=== PATIENT | male | born 2000 | race Caucasian/White ===

== ENCOUNTER 2023-09-10 18:27 | Inpatient (IN) | payer MEDICAID, SELFPAY ==
[2023-09-10 19:23] VITALS: BP 133/74; PULSE 62; RESP 20; TEMP 36.9; O2SAT 98
[2023-09-10 19:25] VITALS: BMI 27.7
--- NOTE | 2023-09-10 20:06 | PC.ADMIT ---
Pt is a 23 year old transgender male (he/him/they/them pronouns) who transferred from [facility] ED on a CV for SI without a plan.? Per medical records, he was referred to [facility] Crisis team 09/08 following medical clearance. Pt has been experiencing?increased?stressors at home recently learning he will need to find new housing by the end of September. Geraldo has hx of MDD, anxiety disorder, gender dysphoria, hx of SIB by cutting (11 mos ago), PTSD,? panic attacks, and chronic lower back pain. He admits to smoking cigarettes and marijuana. He has had 2 previous psychiatric admissions in? 2017 and 2019 for suicide attempt by overdose on a cocktail of medication . Pt reluctantly agreed to skin/safety check, was agitated and tearful self conscious of his chest. Pt skin and safety check performed with 2 female staff, reviewed admission paperwork, and belongings inventoried. Skin intact and no unsafe belongings found on his person. Pt currently denies SI/HI/AVH. Reports his SI is vague and chronic but has no plan or intent.?Pt very upset and overwhelmed with questions, need to undress, and change into new clothing, tearful and yelling at times during admission. process. When asked about hx of restraints he denied any but states that if in the event of needing to be restrained he would prefer a male stating, I would not want to hit a girl if I were upset, I'd rather hit a west! Pt was extremely angry and tearful when asked if rooming with another male was okay and reported, that nurse lied to me! She told me this would not be a problem! This was not passed along in nurse to nurse from outside hospital. Discussed above issue with pharmacist in charge and pt informed of plan to change room assignment. Offered him prn atarax and he declined reporting that does nothing for me.
[2023-09-10] MEDS: traZODone HCL 50 MG TABLET PO (22:21)
[2023-09-10] MEDS: Prazosin HCL 1 MG CAPSULE PO (22:21)
[2023-09-10] MEDS: hydrOXYzine HCL 25 MG TABLET PO (22:21)
[2023-09-11 08:00] VITALS: BP 122/59; PULSE 58; RESP 18; TEMP 36.6; O2SAT 100
[2023-09-11] MEDS: Propranolol HCL LA 60 MG CAP.SA.24H PO (08:09)
[2023-09-11] MEDS: Venlafaxine HCl ER 37.5 MG CAP.ER.24H PO ×2 (08:09→16:01)
[2023-09-11] MEDS: lamoTRIgine 25 MG TABLET PO ×2 (08:09→16:01)
[2023-09-11] MEDS: LORazepam 1 MG TABLET 2 MG PO (08:36)
[2023-09-11] MEDS: HaloperidoL 5 MG TABLET PO (08:37)
[2023-09-11] MEDS: diphenhydrAMINE HCL 25 MG CAPSULE 50 MG PO (08:37)
[2023-09-11 10:01] LABS: Cholesterol 319 mg/dL (<200); HDL Cholesterol 27 mg/dL (>40); LDL Cholesterol Calculated 270 mg/dL (<100); Triglycerides 113 mg/dL (<150)
[2023-09-11 10:07] LABS: Estimated Average Glucose 94 mg/dL; Hemoglobin A1c % 4.9 % (<6.0)
[2023-09-11 10:12] LABS: Free T4 (Free Thyroxine) 1.28 ng/dL (0.71-1.85); Thyroid Stimulating Hormone 1.48 uIU/mL (0.32-4.0)
[2023-09-11] MEDS: Nicotine Polacrilex 2 MG GUM 4 MG BUCCAL ×2 (10:30→20:03)
[2023-09-11] MEDS: Nicotine 14 MG PATCH.TD24 TRANSDERMA (10:30)
[2023-09-11 11:41] LABS: Folate 9.3 ng/mL (> or = 4.0); Vitamin B12 307 pg/mL (200-900)
--- NOTE | 2023-09-11 11:58 | HO.PM.IMCN ---
History of Present Illness Data of Consult Service Date: 09/11/23 Requesting physician: Jeffrey Britton Primary Care Provider: Teo Turpin MD HPI Reason for consult: medical H&P 23-year-old transgender male with history of mood disorder, PCOS, vitamin-D deficiency, and chronic low back pain admitted to Psychiatry with consult placed hospitalist service for medical H& P. The patient was admitted from [facility] ED. While in the ED, hematology studies unremarkable. Renal function and electrolyte levels normal. Glucose normal. Urine tox screen negative. Urine test negative. His only concern right now is postural palpitations but denies any presyncope/syncope or chest pain. He tells me that he has been without his norethindrone for several days and he has been unable to reach anyone at home to bring this in. Unfortunately, the patient has begun menstruating today and reports heavy flow. He also has not used his testosterone injections since 08/18. Otherwise he has no complaints or concerns. Review of Systems Review of Systems: General: No fevers, malaise, unintentional weight loss HEENT: No blurred vision, diplopia. No sore throat, nasal congestion, rhinorrhea, sinus pain, ear pain Cardiovascular: No chest pain, palpitations, or leg edema Respiratory: No shortness of breath, wheezing, cough GI: No abdominal pain, nausea, vomiting, diarrhea, constipation, melena, hematochezia : No dysuria, hematuria, increased urinary frequency, decreased urinary output MSK: No myalgia, back pain Neuro: No headaches, weakness, paresthesias. +positional lightheadedness Skin: No rashes or lesions [facility] Medical History On hormone replacement therapy Vitamin D deficiency MDD (major depressive disorder) PCOS (polycystic ovarian syndrome) Social History Household Members: Friend(s) Household Members Other:: 3 roomates Housing: Apartment Do you presently have visiting nurse or other home services: No Patient Tobacco Use Status: Current everyday Tobacco user Tobacco use type: Cigarette Cigarettes Per Day: 4 Smoked in Last 30 Days: Yes e-Cigarette/Vaping Use: Never Used Patient Interested in Nicotine Replacement: Yes Patient Given Instructions on How to Stop Smoking: No Second Hand Smoke Exposure: No Use of substances other than those prescribed or required for medical reasons: Yes Substance Use Type: Marijuana Substance Use Frequency: Daily Last Used Substance: Just Prior to Admission Last Used Substance Other:: Marijuana Currently Displaying Signs/Symptoms of Drug Intoxication Withdrawal: No Any prior treatment program specific to substance use: No Do you feel safe in your current relationship?: Yes Is there a partner from a previous relationship who is making you feel unsafe now?: No Are you made to feel afraid or neglected: No Spiritual Healthcare Practices: none Jewish Healthcare Practices: none Cultural Healthcare Practices: none Advance Directives: No Advance Directives Information Provided: No Do you have thoughts of harming others: None Do you have a plan to hurt others: No Plan Recently lost weight without trying: Unsure Eating poorly because of decreased appetite: Yes Meds Allergies Allergy/AdvReac Type Severity Reaction Status Date / Time No Known Allergies Allergy Verified 09/10/23 12:13 Active Medications: Current Medications Acetaminophen (Acetaminophen 325 Mg Tablet) 650 mg PO Q6H PRN PRN Reason: Headache/Pain Mild Scale (1-3) Al Hydroxide/Mg Hydroxide (Magnesium Hydrox/Alum Hydrox 30 Ml Oral.Susp) 30 ml PO Q6H PRN PRN Reason: Heartburn/Nausea Hydroxyzine HCl (Hydroxyzine Hcl 25 Mg Tablet) 25 mg PO Q6H PRN PRN Reason: Anxiety Last Admin: 09/10/23 22:21 Dose: 25 mg Lamotrigine (Lamotrigine 25 Mg Tablet) 25 mg PO DAILY [facility] Last Admin: 09/11/23 08:09 Dose: 25 mg Magnesium Hydroxide (Milk Of Magnesia 30 Ml Oral.Susp) 30 ml PO DAILY PRN PRN Reason: Constipation Nicotine (Nicotine 14 Mg Patch.Td24) 14 mg TRANSDERMA DAILY PRN PRN Reason: smoking cessation Last Admin: 09/11/23 10:30 Dose: 14 mg Nicotine Polacrilex (Nicotine Polacrilex 2 Mg Gum) 4 mg BUCCAL Q2H PRN PRN Reason: nicotine cravings Last Admin: 09/11/23 10:30 Dose: 4 mg Prazosin HCl (Prazosin Hcl 1 Mg Capsule) 1 mg PO BEDTIME [facility] Last Admin: 09/10/23 22:21 Dose: 1 mg Propranolol HCl (Propranolol Hcl La 60 Mg Cap.Sa.24h) 60 mg PO DAILY [facility] Last Admin: 09/11/23 08:09 Dose: 60 mg Trazodone HCl (Trazodone Hcl 50 Mg Tablet) 50 mg PO BEDTIME MRX1 PRN PRN Reason: Insomnia Last Admin: 09/10/23 22:21 Dose: 50 mg Venlafaxine HCl (Venlafaxine Hcl Er 37.5 Mg Cap.Er.24h) 37.5 mg PO DAILY [facility] Last Admin: 09/11/23 08:09 Dose: 37.5 mg Home Medications ?Medication ?Instructions ?Recorded ?Confirmed ?Last Taken ?Type gabapentin 300 mg PO DAILY PRN Anxiety 09/10/23 09/10/23 09/09/23 History hydroxyzine pamoate 25 mg PO DAILY PRN Anxiety 09/10/23 09/10/23 09/09/23 History lamotrigine 25 mg PO DAILY 09/10/23 09/10/23 09/09/23 History norethindrone acetate 5 mg PO DAILY 09/10/23 09/10/23 2 Days Ago History ~09/08/23 prazosin 1 mg PO BEDTIME 09/10/23 09/10/23 09/09/23 History propranolol 60 mg PO DAILY 09/10/23 09/10/23 09/09/23 History testosterone 60 mg IM DIRECTED 09/10/23 09/10/23 08/19/23 History venlafaxine 37.5 mg PO DAILY 09/10/23 09/10/23 09/09/23 History Physical Exam Vital Signs and Narrative: Vital Signs: Last Vital Signs Temp 97.9 F 09/11/23 08:00 Pulse 58 09/11/23 08:00 Resp 18 09/11/23 08:00 BP 122/59 L 09/11/23 08:00 Pulse Ox 100 09/11/23 08:00 O2 Del Method Room Air 09/11/23 08:00 BMI result Body Mass Index 27.7 Constitutional - Awake and Alert, No apparent distress Eyes - PERRLA, EOMI Cardiovascular - S1S2, RRR, No edema Respiratory - Normal lung expansion, Normal respiratory effort, No respiratory distress, CTA bilaterally Gastrointestinal - NT / ND; +BS; No rebound or guarding Extremities - no calf tenderness bilaterally, no swelling Musculoskeletal - Normal inspection, normal ROM Skin - Warm/Dry Neurological - Alert & oriented x3, CN II-XII in tact, 5/5 strength BUE and BLE Psychological - Appropriate affect Results Labs Labs: Laboratory Results - last 24 hr 09/11/23 09:18 Estimat Average Glucose 94 Hemoglobin A1c % 4.9 Magnesium 2.0 Triglycerides 113 Cholesterol 319 H LDL Cholesterol, Calc 270 H HDL Cholesterol 27 L Vitamin B12 307 Folate 9.3 TSH 1.48 Free T4 1.28 Assessment and Plan (1) Routine medical exam: Status: Acute Plan 23-year-old transgender male with history of mood disorder, PCOS, vitamin-D deficiency, and chronic low back pain admitted to Psychiatry with consult placed hospitalist service for medical H& P. #Mood disorder -plan per psychiatry #Transgender male on hormone replacement -If possible, have pt's family/friend being in norethidrone as this (nor anything similar) is available on formulary. There is no harm in not being on medication, but patient will continue to menstruate and is reporting heavy flow. Encourage increased fluid intake -Pt has not taken IM testosterone since 08/18. Not available on formulary. Can be brought from home if possible, otherwise ok to resume on discharge #Chronic low back pain -continue gabapentin #Positional palpitations -VSS on review of chart -check orthostatic VS -encourage PO intake #HLD -Total cholesterol 319, LDL 270 -statin therapy typically not indicated in adults <40. However, in pt with LDL >190, statin therapy recommended -start atorvastatin 40mg daily -outpt follow up Thank you for allowing me to participate in this consult. Signing off at this time. Please do not hesitate to call for further questions or for any acute medical issues.
--- NOTE | 2023-09-11 12:35 | HO.PSYADMNOT ---
HPI Date of Service: 09/11/23 Chief Complaint: F33.2, F64.1, F1.9 Sources of Information: patient interviewed, chart reviewed and crisis/core team assessment reviewed HPI Subjective Notes: [place] Warning and Conditional Voluntary Narrative: Pt is a 23 yo trans male with hx of depression, PTSD who presents for worsening depression and SI. Pt reports he's been taking current low dose of medications consistently for a year (Effexor 37.5mg and Lamictal 50mg) but has remained depressed. Depression has been worsening for past 3 months, feeling he has no confidence... and even worse for past 2 weeks, dealing with financial stressors, making her chronic SI which is normally fleeting, become present all the time. He says this week he ended up in a dark spot and his daily, chronic, passive SI became active; he realized it would not take much longer for his to start to develop plans and intent and so boyfriend called for help. Pt has On going ptsd symptoms, including dissociative episodes. Pt denies any AVH; denies hx of manic symptoms; denies drug/alcohol abuse. Endorses OCD symptoms and explains food rituals, intrusive thoughts that food will be contaminated with; has insight to know not true, but remain present; intrusive thought of need to turn certain way before sitting. -this AM she had dissociative episode, got dysregulated and agitated but was redirectable, took prn medicaiton and episode resolved. this AM she had dissociative episode, got dysregulated and agitated but was redirectable, took prn medicaiton and episode resolved. Past Psychiatric History: last psych admission 2018 Medical Evaluation Reviewed: Hospitalist Marylou Pending [facility] Medical History (Updated 09/13/23 @ 11:08 by Jeffrey Britton MD) OCD (obsessive compulsive disorder) PTSD (post-traumatic stress disorder) On hormone replacement therapy Vitamin D deficiency MDD (major depressive disorder) PCOS (polycystic ovarian syndrome) Family History: deferred Social History: graduated HS; some college works 35 hours at [employer] has housing, lives with roommates; supportive boyfriend 2 years Substance History: none Trauma History: positive Diagnostics Vital Signs (24Hr): Vital Signs - 24 hr 09/10/23 19:23 09/11/23 08:00 Temperature 98.4 F 97.9 F Pulse Rate 62 58 Respiratory Rate 20 18 Blood Pressure 133/74 122/59 L Pulse Oximetry 98 100 Oxygen Delivery Method Room Air Room Air BMI result Body Mass Index 27.7 Labs Labs: Laboratory Results - last 48 hr 09/11/23 09:18 Estimat Average Glucose 94 Hemoglobin A1c % 4.9 Magnesium 2.0 Triglycerides 113 Cholesterol 319 H LDL Cholesterol, Calc 270 H HDL Cholesterol 27 L Vitamin B12 307 Folate 9.3 TSH 1.48 Free T4 1.28 Meds/Allergies Meds Home Medications ?Medication ?Instructions ?Recorded ?Confirmed ?Type gabapentin 300 mg PO DAILY PRN Anxiety 09/10/23 09/10/23 History hydroxyzine pamoate 25 mg PO DAILY PRN Anxiety 09/10/23 09/10/23 History lamotrigine 25 mg PO DAILY 09/10/23 09/10/23 History norethindrone acetate 5 mg PO DAILY 09/10/23 09/10/23 History prazosin 1 mg PO BEDTIME 09/10/23 09/10/23 History propranolol 60 mg PO DAILY 09/10/23 09/10/23 History testosterone 60 mg IM DIRECTED 09/10/23 09/10/23 History venlafaxine 37.5 mg PO DAILY 09/10/23 09/10/23 History Allergies Allergies Allergy/AdvReac Type Severity Reaction Status Date / Time No Known Allergies Allergy Verified 09/10/23 12:13 Mental Status Exam Mental Status Exam Narrative: Pt is alert and oriented; behavior was recently dysregulated which resolved; now cooperative and calm; patient is not in distress; dressed in casual attire, glasses, facial hair, adequate hygiene; mood is described as depressed and affect congruent, downcast; eye contact appropriate; Speech is normal rate, volume and prosody and not pressured; both psychomotor agitation/retardation present; thought process is organized and goal directed; Thought content is on life stressors; tx; otherwise pertinent to relevant topics and without any delusional content, paranoid ideations or grandiosity; currently passive SI; no HI. There is no evidence of perceptual disturbance. Patients insight and judgment impaired. Assessment & Plan Assessment & Plan (1) MDD (major depressive disorder): Status: Acute Code(s): F32.9 - Major depressive disorder, single episode, unspecified (2) PTSD (post-traumatic stress disorder): Status: Acute Code(s): F43.10 - Post-traumatic stress disorder, unspecified (3) OCD (obsessive compulsive disorder): Status: Acute Code(s): F42.9 - Obsessive-compulsive disorder, unspecified Plan Pt is a 23 yo trans male with hx of depression, PTSD who presents for worsening depression and SI. Pt reports he's been taking current low dose of medications consistently for a year (Effexor 37.5mg and Lamictal 50mg) but has remained depressed. Depression has been worsening for past 3 months, feeling he has no confidence... and even worse for past 2 weeks, dealing with financial stressors, making her chronic SI which is normally fleeting, become present all the time. He says this week he ended up in a dark spot and his daily, chronic, passive SI became active; he realized it would not take much longer for his to start to develop plans and intent and so boyfriend called for help. Pt has On going ptsd symptoms, including dissociative episodes. Pt denies any AVH; denies hx of manic symptoms; denies drug/alcohol abuse. Endorses OCD symptoms and explains food rituals, intrusive thoughts that food will be contaminated with; has insight to know not true, but remain present; intrusive thought of need to turn certain way before sitting. -this AM she had dissociative episode, got dysregulated and agitated but was redirectable, took prn medicaiton and episode resolved. Plan: CV q15 INCrease Effexor XR to 75mg (has been on 37.5mg for a year) Increase Lamictal to 100mg (has been on 50mg for a year) Pt on progesterone hormones at home; not on formulary; he will have someone bring it in; currently menstruating which is upsetting Patient educated on: diagnosis, medication risk/benefits, therapeutic strategies and medical condition Informed Consent: understands Reason for continued inpatient stay Substantial Risk for: harm to self Statement Statement: I have reviewed the history and physical and performed a pertinent examination on my patient. No changes have occurred unless specified. If the History and Physical was not performed prior to admission, the Hospitalist's service will be consulted for completing the admission physical. Time Spent With Patient Time: Total time managing care of this patient today ____ minutes.
[2023-09-11 15:37] VITALS: BP 118/63; PULSE 75
[2023-09-11 15:38] VITALS: BP 116/67; PULSE 76
[2023-09-11 15:39] VITALS: BP 127/75; PULSE 87
[2023-09-11] MEDS: Prazosin HCL 1 MG CAPSULE PO (22:45)
[2023-09-11] MEDS: cloNIDine HCL 0.1 MG TABLET PO (22:45)
[2023-09-11] MEDS: hydrOXYzine HCL 25 MG TABLET PO (22:45)
[2023-09-11] MEDS: traZODone HCL 50 MG TABLET PO (22:45)
[2023-09-12] MEDS: Nicotine 14 MG PATCH.TD24 TRANSDERMA (10:49)
[2023-09-12] MEDS: Atorvastatin Calcium 40 MG TABLET PO (10:49)
[2023-09-12] MEDS: lamoTRIgine 100 MG TABLET PO (10:49)
[2023-09-12] MEDS: Venlafaxine HCl ER 75 MG CAP.ER.24H PO (10:54)
[2023-09-12 10:55] VITALS: BP 135/68; PULSE 53; RESP 17; TEMP 36.9; O2SAT 98
[2023-09-12] MEDS: Nicotine Polacrilex 2 MG GUM 4 MG BUCCAL ×4 (11:04→20:27)
[2023-09-12 11:19] VITALS: PULSE 53
--- NOTE | 2023-09-12 17:28 | HE.PHANOTE ---
re: pt own med RN was busy and needed medication, RN sent Tony, RN publisher assistant to lemon picker medication from pharmacy. Medication should now be on the floor. (norethindrone 5mg)
--- NOTE | 2023-09-12 18:40 | PC.NURSE ---
Pt reports he had a good visit with his boyfriend this afternoon. He took his home medication Progesterone per MD order. He is visible on unit and eating meals in kitchen socializing with select peers.
[2023-09-12] MEDS: cloNIDine HCL 0.1 MG TABLET PO (21:56)
[2023-09-12] MEDS: traZODone HCL 50 MG TABLET PO ×2 (21:56→22:40)
[2023-09-12] MEDS: hydrOXYzine HCL 25 MG TABLET PO (21:56)
[2023-09-12] MEDS: Prazosin HCL 1 MG CAPSULE PO (21:56)
[2023-09-13 08:00] VITALS: BP 120/74; PULSE 92; RESP 18; TEMP 37.1; O2SAT 99
[2023-09-13] MEDS: Venlafaxine HCl ER 75 MG CAP.ER.24H PO (08:22)
[2023-09-13] MEDS: lamoTRIgine 100 MG TABLET PO (08:22)
[2023-09-13] MEDS: Atorvastatin Calcium 40 MG TABLET PO (08:22)
[2023-09-13] MEDS: Nicotine Polacrilex 2 MG GUM 4 MG BUCCAL ×3 (08:53→20:22)
--- NOTE | 2023-09-13 10:29 | HO.PSYCHPN ---
Subjective Subjective Date of Service: 09/12/23 Reason For Visit: F33.2, F64.1, F1.9 Interim History: late entry note for pt seen on 09/12/23 pt feeling better today; he says being on unit, talking to people. Denies any medication side-effects from increased doses. He did not get propranolol today due to lowered HR; pt denies missing dose today and agrees to have it held for now, unsure if it's helpful. No SI today, more hopeful. Mental Status Exam Mental Status Exam Narrative: Pt is alert and oriented; behavior cooperative, friendly and calm; patient is not in distress; dressed in casual attire, glasses, facial hair, adequate hygiene; mood is described as little better and affect congruent, brighter, more calm; eye contact appropriate; Speech is normal rate, volume and prosody and not pressured; no psychomotor agitation/retardation present; thought process is organized and goal directed; Thought content is on trying to be more hopeful; tx; otherwise pertinent to relevant topics and without any delusional content, paranoid ideations or grandiosity; currently no SI; no HI. There is no evidence of perceptual disturbance. Patients insight and judgment impaired but improving. Diagnostics Vital Signs (24Hr): Vital Signs - 24 hr 09/12/23 10:55 09/12/23 11:19 09/13/23 08:00 Temperature 98.5 F 98.7 F Pulse Rate 53 53 92 Respiratory Rate 17 18 Blood Pressure 135/68 120/74 Pulse Oximetry 98 99 Oxygen Delivery Method Room Air Room Air BMI result Body Mass Index 27.7 Labs Labs: Laboratory Results - last 48 hr 09/11/23 09:18 Vitamin B12 307 Folate 9.3 Medications Medications Current Medications Acetaminophen (Acetaminophen 325 Mg Tablet) 650 mg PO Q6H PRN PRN Reason: Headache/Pain Mild Scale (1-3) Al Hydroxide/Mg Hydroxide (Magnesium Hydrox/Alum Hydrox 30 Ml Oral.Susp) 30 ml PO Q6H PRN PRN Reason: Heartburn/Nausea Atorvastatin Calcium (Atorvastatin Calcium 40 Mg Tablet) 40 mg PO DAILY [facility] Last Admin: 09/13/23 08:22 Dose: 40 mg Clonidine HCl (Clonidine Hcl 0.1 Mg Tablet) 0.1 mg PO Q4H PRN; Protocol PRN Reason: mild anxiety Last Admin: 09/12/23 21:56 Dose: 0.1 mg Hydroxyzine HCl (Hydroxyzine Hcl 25 Mg Tablet) 25 mg PO Q6H PRN PRN Reason: Anxiety Last Admin: 09/12/23 21:56 Dose: 25 mg Lamotrigine (Lamotrigine 100 Mg Tablet) 100 mg PO DAILY [facility] Last Admin: 09/13/23 08:22 Dose: 100 mg Magnesium Hydroxide (Milk Of Magnesia 30 Ml Oral.Susp) 30 ml PO DAILY PRN PRN Reason: Constipation Nicotine (Nicotine 14 Mg Patch.Td24) 14 mg TRANSDERMA DAILY PRN PRN Reason: smoking cessation Last Admin: 09/12/23 10:49 Dose: 14 mg Nicotine Polacrilex (Nicotine Polacrilex 2 Mg Gum) 4 mg BUCCAL Q2H PRN PRN Reason: nicotine cravings Last Admin: 09/13/23 08:53 Dose: 4 mg Pt Own ( Norethindrone 5 Mg Tablet) 2 each PO DAILY [facility] Last Admin: 09/13/23 08:22 Dose: 2 each Olanzapine (Olanzapine 5 Mg Tablet) 5 mg PO Q4H PRN PRN Reason: agitation Prazosin HCl (Prazosin Hcl 1 Mg Capsule) 1 mg PO BEDTIME [facility] Last Admin: 09/12/23 21:56 Dose: 1 mg Trazodone HCl (Trazodone Hcl 50 Mg Tablet) 50 mg PO BEDTIME MRX1 PRN PRN Reason: Insomnia Last Admin: 09/12/23 22:40 Dose: 50 mg Venlafaxine HCl (Venlafaxine Hcl Er 75 Mg Cap.Er.24h) 75 mg PO DAILY [facility] Last Admin: 09/13/23 08:22 Dose: 75 mg Allergies Allergies Allergy/AdvReac Type Severity Reaction Status Date / Time No Known Allergies Allergy Verified 09/10/23 12:13 Assessment & Plan Assessment & Plan (1) MDD (major depressive disorder): Status: Acute Code(s): F32.9 - Major depressive disorder, single episode, unspecified (2) PTSD (post-traumatic stress disorder): Status: Acute Code(s): F43.10 - Post-traumatic stress disorder, unspecified (3) OCD (obsessive compulsive disorder): Status: Acute Code(s): F42.9 - Obsessive-compulsive disorder, unspecified Plan Pt is a 23 yo trans male with hx of depression, PTSD who presents for worsening depression and SI. Pt reports he's been taking current low dose of medications consistently for a year (Effexor 37.5mg and Lamictal 50mg) but has remained depressed. Depression has been worsening for past 3 months, feeling he has no confidence... and even worse for past 2 weeks, dealing with financial stressors, making her chronic SI which is normally fleeting, become present all the time. He says this week he ended up in a dark spot and his daily, chronic, passive SI became active; he realized it would not take much longer for his to start to develop plans and intent and so boyfriend called for help. Pt has On going ptsd symptoms, including dissociative episodes. Pt denies any AVH; denies hx of manic symptoms; denies drug/alcohol abuse. Endorses OCD symptoms and explains food rituals, intrusive thoughts that food will be contaminated with; has insight to know not true, but remain present; intrusive thought of need to turn certain way before sitting. -this AM she had dissociative episode, got dysregulated and agitated but was redirectable, took prn medicaiton and episode resolved. Hospital course: 09/11 improved mood, brighter affect; enjoying milue; sleeping well enough. Will leave meds as is for now Plan: CV q15 Continue Effexor XR to 75mg (has been on 37.5mg for a year) Continue Lamictal to 100mg (has been on 50mg for a year) Holding Propranolol due to lowered HR (which might be chronic; med might not be a problem, but also might not be helpful) Patient Own medication Norethindrone Hospitalist KARISHMA recs: #Transgender male on hormone replacement -If possible, have pt's family/friend being in norethidrone as this (nor anything similar) is available on formulary. There is no harm in not being on medication, but patient will continue to menstruate and is reporting heavy flow. Encourage increased fluid intake -Pt has not taken IM testosterone since 08/18. Not available on formulary. Can be brought from home if possible, otherwise ok to resume on discharge #Chronic low back pain -continue gabapentin #Positional palpitations -VSS on review of chart -check orthostatic VS -encourage PO intake #HLD -Total cholesterol 319, LDL 270 -statin therapy typically not indicated in adults <40. However, in pt with LDL >190, statin therapy recommended -start atorvastatin 40mg daily -outpt follow up Patient educated on: diagnosis, medication risk/benefits, therapeutic strategies and medical condition Informed Consent: understands Reason for continued inpatient stay Substantial Risk for: rapid decompensation Time Spent With Patient Time: Total time managing care of this patient today ____ minutes.
[2023-09-13] MEDS: OLANZapine 5 MG TABLET PO (11:09)
[2023-09-13 14:25] VITALS: BP 120/62
[2023-09-13] MEDS: cloNIDine HCL 0.1 MG TABLET PO (14:25)
--- NOTE | 2023-09-13 15:00 | HO.PSYCHPN ---
Subjective Subjective Date of Service: 09/13/23 Reason For Visit: F33.2, F64.1, F1.9 Interim History: Visable in milieu. Approached pt to meet. They declined, reporting having a difficult moment, waiting for a prn and wanting to rest. Medication Compliance: Yes Side effects from medications: No Attending Groups: Intermittent Review of Systems Acute medical concerns: No Medical Review of Systems: unchanged Review of Systems Review of Systems Yes all other systems are reviewed and are negative Mental Status Exam Mental Status Exam Patient Appearance: Appropriate Patient Orientation: Person, Place, Time and Situation Level of Consciousness: Alert Patient Behavior: Avoidant Mood Description: Angry Affect Description: Flat Patient Cognition Impaired: No Ability to Follow Directions: Good Speech Pattern: Spontaneous Speech Depressive Symptoms: Increased Irritability Diagnostics Vital Signs (24Hr): Vital Signs - 24 hr 09/13/23 08:00 09/13/23 14:25 Temperature 98.7 F Pulse Rate 92 Respiratory Rate 18 Blood Pressure 120/74 120/62 Pulse Oximetry 99 Oxygen Delivery Method Room Air BMI result Body Mass Index 27.7 Medications Medications Current Medications Acetaminophen (Acetaminophen 325 Mg Tablet) 650 mg PO Q6H PRN PRN Reason: Headache/Pain Mild Scale (1-3) Al Hydroxide/Mg Hydroxide (Magnesium Hydrox/Alum Hydrox 30 Ml Oral.Susp) 30 ml PO Q6H PRN PRN Reason: Heartburn/Nausea Atorvastatin Calcium (Atorvastatin Calcium 40 Mg Tablet) 40 mg PO DAILY [facility] Last Admin: 09/13/23 08:22 Dose: 40 mg Clonidine HCl (Clonidine Hcl 0.1 Mg Tablet) 0.1 mg PO Q4H PRN; Protocol PRN Reason: mild anxiety Last Admin: 09/13/23 14:25 Dose: 0.1 mg Hydroxyzine HCl (Hydroxyzine Hcl 25 Mg Tablet) 25 mg PO Q6H PRN PRN Reason: Anxiety Last Admin: 09/12/23 21:56 Dose: 25 mg Lamotrigine (Lamotrigine 100 Mg Tablet) 100 mg PO DAILY [facility] Last Admin: 09/13/23 08:22 Dose: 100 mg Magnesium Hydroxide (Milk Of Magnesia 30 Ml Oral.Susp) 30 ml PO DAILY PRN PRN Reason: Constipation Nicotine (Nicotine 14 Mg Patch.Td24) 14 mg TRANSDERMA DAILY PRN PRN Reason: smoking cessation Last Admin: 09/12/23 10:49 Dose: 14 mg Nicotine Polacrilex (Nicotine Polacrilex 2 Mg Gum) 4 mg BUCCAL Q2H PRN PRN Reason: nicotine cravings Last Admin: 09/13/23 08:53 Dose: 4 mg Pt Own ( Norethindrone 5 Mg Tablet) 2 each PO DAILY [facility] Last Admin: 09/13/23 08:22 Dose: 2 each Olanzapine (Olanzapine 5 Mg Tablet) 5 mg PO Q4H PRN PRN Reason: agitation Last Admin: 09/13/23 11:09 Dose: 5 mg Prazosin HCl (Prazosin Hcl 1 Mg Capsule) 1 mg PO BEDTIME [facility] Last Admin: 09/12/23 21:56 Dose: 1 mg Trazodone HCl (Trazodone Hcl 50 Mg Tablet) 50 mg PO BEDTIME MRX1 PRN PRN Reason: Insomnia Last Admin: 09/12/23 22:40 Dose: 50 mg Venlafaxine HCl (Venlafaxine Hcl Er 75 Mg Cap.Er.24h) 75 mg PO DAILY [facility] Last Admin: 09/13/23 08:22 Dose: 75 mg Allergies Allergies Allergy/AdvReac Type Severity Reaction Status Date / Time No Known Allergies Allergy Verified 09/10/23 12:13 Assessment & Plan Assessment & Plan (1) MDD (major depressive disorder): Status: Acute Code(s): F32.9 - Major depressive disorder, single episode, unspecified (2) PTSD (post-traumatic stress disorder): Status: Acute Code(s): F43.10 - Post-traumatic stress disorder, unspecified (3) OCD (obsessive compulsive disorder): Status: Acute Code(s): F42.9 - Obsessive-compulsive disorder, unspecified Plan Pt is a 23 yo trans male with hx of depression, PTSD who presents for worsening depression and SI. Pt reports he's been taking current low dose of medications consistently for a year (Effexor 37.5mg and Lamictal 50mg) but has remained depressed. Depression has been worsening for past 3 months, feeling he has no confidence... and even worse for past 2 weeks, dealing with financial stressors, making her chronic SI which is normally fleeting, become present all the time. He says this week he ended up in a dark spot and his daily, chronic, passive SI became active; he realized it would not take much longer for his to start to develop plans and intent and so boyfriend called for help. Pt has On going ptsd symptoms, including dissociative episodes. Pt denies any AVH; denies hx of manic symptoms; denies drug/alcohol abuse. Endorses OCD symptoms and explains food rituals, intrusive thoughts that food will be contaminated with; has insight to know not true, but remain present; intrusive thought of need to turn certain way before sitting. -this AM she had dissociative episode, got dysregulated and agitated but was redirectable, took prn medicaiton and episode resolved. Hospital course: 09/11 improved mood, brighter affect; enjoying milue; sleeping well enough. Will leave meds as is for now 09/12 Continue treatment Plan: CV q15 Continue Effexor XR to 75mg (has been on 37.5mg for a year) Continue Lamictal to 100mg (has been on 50mg for a year) Holding Propranolol due to lowered HR (which might be chronic; med might not be a problem, but also might not be helpful) Patient Own medication Norethindrone Hospitalist KARISHMA recs: #Transgender male on hormone replacement -If possible, have pt's family/friend being in norethidrone as this (nor anything similar) is available on formulary. There is no harm in not being on medication, but patient will continue to menstruate and is reporting heavy flow. Encourage increased fluid intake -Pt has not taken IM testosterone since 08/18. Not available on formulary. Can be brought from home if possible, otherwise ok to resume on discharge #Chronic low back pain -continue gabapentin #Positional palpitations -VSS on review of chart -check orthostatic VS -encourage PO intake #HLD -Total cholesterol 319, LDL 270 -statin therapy typically not indicated in adults <40. However, in pt with LDL >190, statin therapy recommended -start atorvastatin 40mg daily -outpt follow up Reason for continued inpatient stay Substantial Risk for: rapid decompensation Time Spent With Patient Time: Total time managing care of this patient today ____ minutes.
[2023-09-13] MEDS: Milk of Magnesia 30 ML ORAL.SUSP PO (18:46)
[2023-09-13 20:00] VITALS: BP 127/77; PULSE 90; TEMP 36.8; O2SAT 98
[2023-09-13 21:57] VITALS: BP 131/80
[2023-09-13] MEDS: traZODone HCL 50 MG TABLET PO (21:57)
[2023-09-13] MEDS: hydrOXYzine HCL 25 MG TABLET PO (21:57)
[2023-09-13] MEDS: Prazosin HCL 1 MG CAPSULE PO (21:57)
[2023-09-14] MEDS: OLANZapine 5 MG TABLET PO ×2 (07:15→16:02)
[2023-09-14] MEDS: Atorvastatin Calcium 40 MG TABLET PO (08:16)
[2023-09-14] MEDS: lamoTRIgine 100 MG TABLET PO (08:16)
[2023-09-14] MEDS: Venlafaxine HCl ER 75 MG CAP.ER.24H PO (08:16)
[2023-09-14 08:25] VITALS: BP 117/67; PULSE 88; RESP 18; TEMP 37.2; O2SAT 98
[2023-09-14] MEDS: Nicotine 14 MG PATCH.TD24 TRANSDERMA (11:51)
[2023-09-14] MEDS: Nicotine Polacrilex 2 MG GUM 4 MG BUCCAL ×2 (12:54→19:01)
[2023-09-14 20:00] VITALS: BP 148/72; PULSE 104; RESP 18; TEMP 36.6; O2SAT 98
[2023-09-14 20:18] VITALS: BP 148/72
[2023-09-14] MEDS: Prazosin HCL 1 MG CAPSULE PO (20:18)
[2023-09-14] MEDS: traZODone HCL 50 MG TABLET PO (20:18)
[2023-09-14] MEDS: hydrOXYzine HCL 25 MG TABLET PO (20:19)
--- NOTE | 2023-09-14 21:00 | P.PNPSI_ITS ---
Subjective Subjective Date of Service: 09/14/23 Reason For Visit: F33.2, F64.1, F1.9 Interim History: Patient seen. Another patient guffawed when he said his name to introduce self to this examiner. He became upset. He started confronting the other patient but calmed down. He is visible in milieu. Andrea SI/HI/AVH. Review of Systems Review of Systems General: No fevers, malaise, unintentional weight loss HEENT: No blurred vision, diplopia. No sore throat, nasal congestion, rhinorrhea, sinus pain, ear pain Cardiovascular: No chest pain, palpitations, or leg edema Respiratory: No shortness of breath, wheezing, cough GI: No abdominal pain, nausea, vomiting, diarrhea, constipation, melena, hematochezia : No dysuria, hematuria, increased urinary frequency, decreased urinary output MSK: No myalgia, back pain Neuro: No headaches, weakness, paresthesias. +positional lightheadedness Skin: No rashes or lesions Yes all other systems are reviewed and are negative Mental Status Exam Mental Status Exam Narrative: Pt is alert and oriented; behavior cooperative, friendly and calm; patient is no t in distress; dressed in casual attire, glasses, facial hair, adequate hygiene; mood is described as little better and affect congruent, brighter, more calm; eye contact appropriate; Speech is normal rate, volume and prosody and not pressured; no psychomotor agitation/retardation present; thought process is organized and goal directed; Thought content is on trying to be more hopeful; tx; otherwise pertinent to relevant topics and without any delusional content, paranoid ideations or grandiosity; currently no SI; no HI. There is no evidence of perceptual disturbance. Patients insight and judgment impaired but improving. Patient Appearance: Appropriate Patient Orientation: Person, Place, Time and Situation Level of Consciousness: Alert Patient Behavior: Avoidant Mood Description: Angry Affect Description: Flat Patient Cognition Impaired: No Ability to Follow Directions: Good Speech Pattern: Spontaneous Speech Diagnostics Vital Signs (24Hr): Vital Signs - 24 hr 09/13/23 21:57 09/14/23 08:25 09/14/23 20:00 Temperature 99.0 F 97.9 F Pulse Rate 88 104 H Respiratory Rate 18 18 Blood Pressure 131/80 117/67 148/72 H Pulse Oximetry 98 98 Oxygen Delivery Method Room Air Room Air 09/14/23 20:18 Temperature Pulse Rate Respiratory Rate Blood Pressure 148/72 H Pulse Oximetry Oxygen Delivery Method BMI result Body Mass Index 27.7 Medications Medications Current Medications Acetaminophen (Acetaminophen 325 Mg Tablet) 650 mg PO Q6H PRN PRN Reason: Headache/Pain Mild Scale (1-3) Al Hydroxide/Mg Hydroxide (Magnesium Hydrox/Alum Hydrox 30 Ml Oral.Susp) 30 ml PO Q6H PRN PRN Reason: Heartburn/Nausea Atorvastatin Calcium (Atorvastatin Calcium 40 Mg Tablet) 40 mg PO DAILY [facility] [place] Last Admin: 09/14/23 08:16 Dose: 40 mg Clonidine HCl (Clonidine Hcl 0.1 Mg Tablet) 0.1 mg PO Q4H PRN; Protocol PRN Reason: mild anxiety Last Admin: 09/13/23 14:25 Dose: 0.1 mg Hydroxyzine HCl (Hydroxyzine Hcl 25 Mg Tablet) 25 mg PO Q6H PRN PRN Reason: Anxiety Last Admin: 09/14/23 20:19 Dose: 25 mg Lamotrigine (Lamotrigine 100 Mg Tablet) 100 mg PO DAILY [facility] [place] Last Admin: 09/14/23 08:16 Dose: 100 mg Magnesium Hydroxide (Milk Of Magnesia 30 Ml Oral.Susp) 30 ml PO DAILY PRN PRN Reason: Constipation Last Admin: 09/13/23 18:46 Dose: 30 ml Nicotine (Nicotine 14 Mg Patch.Td24) 14 mg TRANSDERMA DAILY PRN PRN Reason: smoking cessation Last Admin: 09/14/23 11:51 Dose: 14 mg Nicotine Polacrilex (Nicotine Polacrilex 2 Mg Gum) 4 mg BUCCAL Q2H PRN PRN Reason: nicotine cravings Last Admin: 09/14/23 19:01 Dose: 4 mg Pt Own ( Norethindrone 5 Mg Tablet) 2 each PO DAILY [facility] Last Admin: 09/14/23 08:16 Dose: 2 each Olanzapine (Olanzapine 5 Mg Tablet) 5 mg PO Q4H PRN PRN Reason: agitation Last Admin: 09/14/23 16:02 Dose: 5 mg Prazosin HCl (Prazosin Hcl 1 Mg Capsule) 1 mg PO BEDTIME [facility] [place] Last Admin: 09/14/23 20:18 Dose: 1 mg Trazodone HCl (Trazodone Hcl 50 Mg Tablet) 50 mg PO BEDTIME MRX1 PRN PRN Reason: Insomnia Last Admin: 09/14/23 20:18 Dose: 50 mg Venlafaxine HCl (Venlafaxine Hcl Er 75 Mg Cap.Er.24h) 75 mg PO DAILY [facility] Last Admin: 09/14/23 08:16 Dose: 75 mg Allergies Allergies Allergy/AdvReac Type Severity Reaction Status Date / Time No Known Allergies Allergy Verified 09/10/23 12:13 Assessment & Plan Assessment & Plan (1) MDD (major depressive disorder): Status: Acute Code(s): F32.9 - Major depressive disorder, single episode, unspecified (2) PTSD (post-traumatic stress disorder): Status: Acute Code(s): F43.10 - Post-traumatic stress disorder, unspecified (3) OCD (obsessive compulsive disorder): Status: Acute Code(s): F42.9 - Obsessive-compulsive disorder, unspecified Plan Pt is a 23 yo trans male with hx of depression, PTSD who presents for worsening depression and SI. Pt reports he's been taking current low dose of medications consistently for a year (Effexor 37.5mg and Lamictal 50mg) but has remained depressed. Depression has been worsening for past 3 months, feeling he has no confidence... and even worse for past 2 weeks, dealing with financial stressors, making her chronic SI which is normally fleeting, become present all the time. He says this week he ended up in a dark spot and his daily, chronic, passive SI became active; he realized it would not take much longer for his to start to develop plans and intent and so boyfriend called for help. Pt has On going ptsd symptoms, including dissociative episodes. Pt denies any AVH; denies hx of manic symptoms; denies drug/alcohol abuse. Endorses OCD symptoms and explains food rituals, intrusive thoughts that food will be contaminated with; has insight to know not true, but remain present; intrusive thought of need to turn certain way before sitting. -this AM she had dissociative episode, got dysregulated and agitated but was redirectable, took prn medicaiton and episode resolved. Hospital course: 09/11 improved mood, brighter affect; enjoying milue; sleeping well enough. Will leave meds as is for now 09/12 Continue treatment 09/13: continue current management and treatment plan. Plan: CV q15 Continue Effexor XR to 75mg (has been on 37.5mg for a year) Continue Lamictal to 100mg (has been on 50mg for a year) Holding Propranolol due to lowered HR (which might be chronic; med might not be a problem, but also might not be helpful) Patient Own medication Norethindrone Hospitalist KARISHMA recs: #Transgender male on hormone replacement -If possible, have pt's family/friend being in norethidrone as this (nor anything similar) is available on formulary. There is no harm in not being on medication, but patient will continue to menstruate and is reporting heavy flow. Encourage increased fluid intake -Pt has not taken IM testosterone since 08/18. Not available on formulary. Can be brought from home if possible, otherwise ok to resume on discharge #Chronic low back pain -continue gabapentin #Positional palpitations -VSS on review of chart -check orthostatic VS -encourage PO intake #HLD -Total cholesterol 319, LDL 270 -statin therapy typically not indicated in adults <40. However, in pt with LDL >190, statin therapy recommended -start atorvastatin 40mg daily -outpt follow up Reason for continued inpatient stay Substantial Risk for: harm to self Time Spent With Patient Time: Total time managing care of this patient today ____ minutes.
[2023-09-15] MEDS: Atorvastatin Calcium 40 MG TABLET PO (08:08)
[2023-09-15] MEDS: lamoTRIgine 100 MG TABLET PO (08:08)
[2023-09-15] MEDS: Venlafaxine HCl ER 75 MG CAP.ER.24H PO (08:08)
[2023-09-15] MEDS: Milk of Magnesia 30 ML ORAL.SUSP PO (08:08)
[2023-09-15 08:20] VITALS: BP 155/80; PULSE 112; RESP 18; TEMP 36.6; O2SAT 97
--- NOTE | 2023-09-15 09:22 | HO.PSYCHPN ---
Subjective Subjective Date of Service: 09/15/23 Reason For Visit: F33.2, F64.1, F1.9 Interim History: Patient seen. Reports he is feeling some internal agitation but no outward manifestation visible of same. He reports no SI. Engaged in the milieu. Tolerating increase in Lamictal well.Participating in groups. Appetite good. Insomnia. Deneis SI/HI/AVH. Review of Systems Review of Systems General: No fevers, malaise, unintentional weight loss HEENT: No blurred vision, diplopia. No sore throat, nasal congestion, rhinorrhea, sinus pain, ear pain Cardiovascular: No chest pain, palpitations, or leg edema Respiratory: No shortness of breath, wheezing, cough GI: No abdominal pain, nausea, vomiting, diarrhea, constipation, melena, hematochezia : No dysuria, hematuria, increased urinary frequency, decreased urinary output MSK: No myalgia, back pain Neuro: No headaches, weakness, paresthesias. +positional lightheadedness Skin: No rashes or lesions Yes all other systems are reviewed and are negative Mental Status Exam Mental Status Exam Narrative: Pt is alert and oriented; behavior cooperative, friendly and calm; patient is not in distress; dressed in casual attire, glasses, facial hair, adequate hygiene; mood is described as little better and affect congruent, brighter, more calm; eye contact appropriate; Speech is normal rate, volume and prosody and not pressured; no psychomotor agitation/retardation present; thought process is organized and goal directed; Thought content is on trying to be more hopeful; tx; otherwise pertinent to relevant topics and without any delusional content, paranoid ideations or grandiosity; currently no SI; no HI. There is no evidence of perceptual disturbance. Patients insight and judgment impaired but improving. Patient Appearance: Appropriate Patient Orientation: Person, Place, Time and Situation Level of Consciousness: Alert Patient Behavior: Avoidant Mood Description: Angry Affect Description: Flat Patient Cognition Impaired: No Ability to Follow Directions: Good Speech Pattern: Spontaneous Speech Diagnostics Vital Signs (24Hr): Vital Signs - 24 hr 09/14/23 20:00 09/14/23 20:18 09/15/23 08:20 Temperature 97.9 F 97.8 F Pulse Rate 104 H 112 H Respiratory Rate 18 18 Blood Pressure 148/72 H 148/72 H 155/80 H Pulse Oximetry 98 97 Oxygen Delivery Method Room Air Room Air BMI result Body Mass Index 27.7 Medications Medications Current Medications Acetaminophen (Acetaminophen 325 Mg Tablet) 650 mg PO Q6H PRN PRN Reason: Headache/Pain Mild Scale (1-3) Al Hydroxide/Mg Hydroxide (Magnesium Hydrox/Alum Hydrox 30 Ml Oral.Susp) 30 ml PO Q6H PRN PRN Reason: Heartburn/Nausea Atorvastatin Calcium (Atorvastatin Calcium 40 Mg Tablet) 40 mg PO DAILY [facility] Last Admin: 09/15/23 08:08 Dose: 40 mg Clonidine HCl (Clonidine Hcl 0.1 Mg Tablet) 0.1 mg PO Q4H PRN; Protocol PRN Reason: mild anxiety Last Admin: 09/13/23 14:25 Dose: 0.1 mg Hydroxyzine HCl (Hydroxyzine Hcl 25 Mg Tablet) 25 mg PO Q6H PRN PRN Reason: Anxiety Last Admin: 09/14/23 20:19 Dose: 25 mg Lamotrigine (Lamotrigine 100 Mg Tablet) 100 mg PO DAILY [facility] Last Admin: 09/15/23 08:08 Dose: 100 mg Magnesium Hydroxide (Milk Of Magnesia 30 Ml Oral.Susp) 30 ml PO DAILY PRN PRN Reason: Constipation Last Admin: 09/15/23 08:08 Dose: 30 ml Nicotine (Nicotine 14 Mg Patch.Td24) 14 mg TRANSDERMA DAILY PRN PRN Reason: smoking cessation Last Admin: 09/14/23 11:51 Dose: 14 mg Nicotine Polacrilex (Nicotine Polacrilex 2 Mg Gum) 4 mg BUCCAL Q2H PRN PRN Reason: nicotine cravings Last Admin: 09/14/23 19:01 Dose: 4 mg Pt Own ( Norethindrone 5 Mg Tablet) 2 each PO DAILY [facility] Last Admin: 09/15/23 08:08 Dose: 2 each Olanzapine (Olanzapine 5 Mg Tablet) 5 mg PO Q4H PRN PRN Reason: agitation Last Admin: 09/14/23 16:02 Dose: 5 mg Prazosin HCl (Prazosin Hcl 1 Mg Capsule) 1 mg PO BEDTIME [facility] Last Admin: 09/14/23 20:18 Dose: 1 mg Trazodone HCl (Trazodone Hcl 50 Mg Tablet) 50 mg PO BEDTIME MRX1 PRN PRN Reason: Insomnia Last Admin: 09/14/23 20:18 Dose: 50 mg Venlafaxine HCl (Venlafaxine Hcl Er 75 Mg Cap.Er.24h) 75 mg PO DAILY [facility] Last Admin: 09/15/23 08:08 Dose: 75 mg Allergies Allergies Allergy/AdvReac Type Severity Reaction Status Date / Time No Known Allergies Allergy Verified 09/10/23 12:13 Assessment & Plan Assessment & Plan (1) MDD (major depressive disorder): Status: Acute Code(s): F32.9 - Major depressive disorder, single episode, unspecified (2) PTSD (post-traumatic stress disorder): Status: Acute Code(s): F43.10 - Post-traumatic stress disorder, unspecified (3) OCD (obsessive compulsive disorder): Status: Acute Code(s): F42.9 - Obsessive-compulsive disorder, unspecified Plan Pt is a 23 yo trans male with hx of depression, PTSD who presents for worsening depression and SI. Pt reports he's been taking current low dose of medications consistently for a year (Effexor 37.5mg and Lamictal 50mg) but has remained depressed. Depression has been worsening for past 3 months, feeling he has no confidence... and even worse for past 2 weeks, dealing with financial stressors, making her chronic SI which is normally fleeting, become present all the time. He says this week he ended up in a dark spot and his daily, chronic, passive SI became active; he realized it would not take much longer for his to start to develop plans and intent and so boyfriend called for help. Pt has On going ptsd symptoms, including dissociative episodes. Pt denies any AVH; denies hx of manic symptoms; denies drug/alcohol abuse. Endorses OCD symptoms and explains food rituals, intrusive thoughts that food will be contaminated with; has insight to know not true, but remain present; intrusive thought of need to turn certain way before sitting. -this AM she had dissociative episode, got dysregulated and agitated but was redirectable, took prn medicaiton and episode resolved. Hospital course: 09/11 improved mood, brighter affect; enjoying milue; sleeping well enough. Will leave meds as is for now 09/12 Continue treatment 09/13: continue current management and treatment plan. 09/14: continue current management and treatment plan. Plan: CV q15 Continue Effexor XR to 75mg (has been on 37.5mg for a year) Continue Lamictal to 100mg (has been on 50mg for a year) Holding Propranolol due to lowered HR (which might be chronic; med might not be a problem, but also might not be helpful) Patient Own medication Norethindrone Hospitalist KARISHMA recs: #Transgender male on hormone replacement -If possible, have pt's family/friend being in norethidrone as this (nor anything similar) is available on formulary. There is no harm in not being on medication, but patient will continue to menstruate and is reporting heavy flow. Encourage increased fluid intake -Pt has not taken IM testosterone since 08/18. Not available on formulary. Can be brought from home if possible, otherwise ok to resume on discharge #Chronic low back pain -continue gabapentin #Positional palpitations -VSS on review of chart -check orthostatic VS -encourage PO intake #HLD -Total cholesterol 319, LDL 270 -statin therapy typically not indicated in adults <40. However, in pt with LDL >190, statin therapy recommended -start atorvastatin 40mg daily -outpt follow up Reason for continued inpatient stay Substantial Risk for: harm to self, inability to function and rapid decompensation Time Spent With Patient Time: Total time managing care of this patient today ____ minutes.
[2023-09-15] MEDS: OLANZapine 5 MG TABLET PO ×2 (10:05→19:35)
[2023-09-15] MEDS: cloNIDine HCL 0.1 MG TABLET PO ×2 (11:53→20:09)
[2023-09-15 11:56] VITALS: BP 131/81; PULSE 92
[2023-09-15] MEDS: Nicotine Polacrilex 2 MG GUM 4 MG BUCCAL (15:54)
[2023-09-15] MEDS: hydrOXYzine HCL 25 MG TABLET PO (19:35)
[2023-09-15 20:00] VITALS: BP 137/62; PULSE 92; RESP 18; TEMP 37.4; O2SAT 98
[2023-09-15 20:09] VITALS: BP 137/62
[2023-09-15] MEDS: Prazosin HCL 1 MG CAPSULE PO (20:09)
[2023-09-15] MEDS: traZODone HCL 50 MG TABLET PO (20:09)
[2023-09-15] MEDS: Acetaminophen 325 MG TABLET 650 MG PO (20:11)
[2023-09-16 08:00] VITALS: BP 130/73; PULSE 83; RESP 18; TEMP 37.1; O2SAT 96
[2023-09-16] MEDS: Atorvastatin Calcium 40 MG TABLET PO (08:01)
[2023-09-16] MEDS: lamoTRIgine 100 MG TABLET PO (08:01)
[2023-09-16] MEDS: Venlafaxine HCl ER 75 MG CAP.ER.24H PO (08:01)
[2023-09-16] MEDS: Nicotine Polacrilex 2 MG GUM 4 MG BUCCAL ×2 (09:17→12:59)
[2023-09-16] MEDS: OLANZapine 5 MG TABLET PO ×3 (09:17→21:04)
--- NOTE | 2023-09-16 09:54 | P.PNPSI_ITS ---
Subjective Subjective Date of Service: 09/16/23 Reason For Visit: F33.2, F64.1, F1.9 Interim History: Met with patient; discussed with team Patient feels that he is doing better, mood improved, feeling safe Mental Status Exam Mental Status Exam Narrative: Pt is alert and oriented x3; behavior cooperative, friendly and calm; patient is not in distress; dressed in casual attire, glasses, facial hair, adequate hygiene; mood is described as better and affect congruent, brighter, more calm; eye contact appropriate; Speech is normal rate, volume and prosody and not pressured; no psychomotor agitation/retardation present; thought process is organized and goal directed; Thought content is on trying to be more hopeful; tx; otherwise pertinent to relevant topics and without any delusional content, paranoid ideations or grandiosity; currently no SI; no HI. There is no evidence of perceptual disturbance. Patients insight and judgment improving, fair. Diagnostics Vital Signs (24Hr): Vital Signs - 24 hr 09/15/23 11:56 09/15/23 20:00 09/15/23 20:09 Temperature 99.3 F Pulse Rate 92 92 Respiratory Rate 18 Blood Pressure 131/81 137/62 137/62 Pulse Oximetry 98 Oxygen Delivery Method Room Air 09/15/23 20:09 Temperature Pulse Rate Respiratory Rate Blood Pressure 137/62 Pulse Oximetry Oxygen Delivery Method BMI result Body Mass Index 27.7 Medications Medications Current Medications Acetaminophen (Acetaminophen 325 Mg Tablet) 650 mg PO Q6H PRN PRN Reason: Headache/Pain Mild Scale (1-3) Last Admin: 09/15/23 20:11 Dose: 650 mg Al Hydroxide/Mg Hydroxide (Magnesium Hydrox/Alum Hydrox 30 Ml Oral.Susp) 30 ml PO Q6H PRN PRN Reason: Heartburn/Nausea Atorvastatin Calcium (Atorvastatin Calcium 40 Mg Tablet) 40 mg PO DAILY [facility] Last Admin: 09/16/23 08:01 Dose: 40 mg Clonidine HCl (Clonidine Hcl 0.1 Mg Tablet) 0.1 mg PO Q4H PRN; Protocol PRN Reason: mild anxiety Last Admin: 09/15/23 20:09 Dose: 0.1 mg Hydroxyzine HCl (Hydroxyzine Hcl 25 Mg Tablet) 25 mg PO Q6H PRN PRN Reason: Anxiety Last Admin: 09/15/23 19:35 Dose: 25 mg Lamotrigine (Lamotrigine 100 Mg Tablet) 100 mg PO DAILY [facility] Last Admin: 09/16/23 08:01 Dose: 100 mg Magnesium Hydroxide (Milk Of Magnesia 30 Ml Oral.Susp) 30 ml PO DAILY PRN PRN Reason: Constipation Last Admin: 09/15/23 08:08 Dose: 30 ml Nicotine (Nicotine 14 Mg Patch.Td24) 14 mg TRANSDERMA DAILY PRN PRN Reason: smoking cessation Last Admin: 09/14/23 11:51 Dose: 14 mg Nicotine Polacrilex (Nicotine Polacrilex 2 Mg Gum) 4 mg BUCCAL Q2H PRN PRN Reason: nicotine cravings Last Admin: 09/16/23 09:17 Dose: 4 mg Pt Own ( Norethindrone 5 Mg Tablet) 2 each PO DAILY [facility] Last Admin: 09/16/23 08:03 Dose: 2 each Olanzapine (Olanzapine 5 Mg Tablet) 5 mg PO Q4H PRN PRN Reason: agitation Last Admin: 09/16/23 09:17 Dose: 5 mg Prazosin HCl (Prazosin Hcl 1 Mg Capsule) 1 mg PO BEDTIME [facility] Last Admin: 09/15/23 20:09 Dose: 1 mg Trazodone HCl (Trazodone Hcl 50 Mg Tablet) 50 mg PO BEDTIME MRX1 PRN PRN Reason: Insomnia Last Admin: 09/15/23 20:09 Dose: 50 mg Venlafaxine HCl (Venlafaxine Hcl Er 75 Mg Cap.Er.24h) 75 mg PO DAILY [facility] Last Admin: 09/16/23 08:01 Dose: 75 mg Allergies Allergies Allergy/AdvReac Type Severity Reaction Status Date / Time No Known Allergies Allergy Verified 09/10/23 12:13 Assessment & Plan Assessment & Plan (1) MDD (major depressive disorder): Status: Acute Code(s): F32.9 - Major depressive disorder, single episode, unspecified (2) PTSD (post-traumatic stress disorder): Status: Acute Code(s): F43.10 - Post-traumatic stress disorder, unspecified (3) OCD (obsessive compulsive disorder): Status: Acute Code(s): F42.9 - Obsessive-compulsive disorder, unspecified Plan Pt is a 23 yo trans male with hx of depression, PTSD who presents for worsening depression and SI. Pt reports he's been taking current low dose of medications consistently for a year (Effexor 37.5mg and Lamictal 50mg) but has remained depressed. Depression has been worsening for past 3 months, feeling he has no c onfidence... and even worse for past 2 weeks, dealing with financial stressors, making her chronic SI which is normally fleeting, become present all the time. He says this week he ended up in a dark spot and his daily, chronic, passive SI became active; he realized it would not take much longer for his to start to develop plans and intent and so boyfriend called for help. Pt has On going ptsd symptoms, including dissociative episodes. Pt denies any AVH; denies hx of manic symptoms; denies drug/alcohol abuse. Endorses OCD symptoms and explains food rituals, intrusive thoughts that food will be contaminated with; has insight to know not true, but remain present; intrusive thought of need to turn certain way before sitting. -this AM she had dissociative episode, got dysregulated and agitated but was redirectable, took prn medicaiton and episode resolved. Hospital course: 09/11 improved mood, brighter affect; enjoying milue; sleeping well enough. Will leave meds as is for now 09/12 Continue treatment 09/13: continue current management and treatment plan. 09/14: continue current management and treatment plan. Plan: CV q15 Continue Effexor XR to 75mg (has been on 37.5mg for a year) Continue Lamictal to 100mg (has been on 50mg for a year) Holding Propranolol due to lowered HR (which might be chronic; med might not be a problem, but also might not be helpful) Patient Own medication Norethindrone Hospitalist KARISHMA recs: #Transgender male on hormone replacement -If possible, have pt's family/friend being in norethidrone as this (nor anything similar) is available on formulary. There is no harm in not being on medication, but patient will continue to menstruate and is reporting heavy flow. Encourage increased fluid intake -Pt has not taken IM testosterone since 08/18. Not available on formulary. Can be brought from home if possible, otherwise ok to resume on discharge #Chronic low back pain -continue gabapentin #Positional palpitations -VSS on review of chart -check orthostatic VS -encourage PO intake #HLD -Total cholesterol 319, LDL 270 -statin therapy typically not indicated in adults <40. However, in pt with LDL >190, statin therapy recommended -start atorvastatin 40mg daily -outpt follow up Reason for continued inpatient stay Substantial Risk for: stable for discharge Time Spent With Patient Time: Total time managing care of this patient today ____ minutes.
[2023-09-16 20:00] VITALS: BP 136/63; PULSE 95; RESP 18; TEMP 36.9; O2SAT 100
[2023-09-16] MEDS: hydrOXYzine HCL 25 MG TABLET PO (21:04)
[2023-09-16] MEDS: Prazosin HCL 1 MG CAPSULE PO (21:43)
[2023-09-16] MEDS: traZODone HCL 50 MG TABLET PO (21:43)
[2023-09-16] MEDS: cloNIDine HCL 0.1 MG TABLET PO (21:43)
[2023-09-17] MEDS: Atorvastatin Calcium 40 MG TABLET PO (08:16)
[2023-09-17] MEDS: Venlafaxine HCl ER 75 MG CAP.ER.24H PO (08:16)
[2023-09-17] MEDS: lamoTRIgine 100 MG TABLET PO (08:16)
[2023-09-17 08:20] VITALS: BP 131/64; PULSE 66; RESP 16; TEMP 37.1; O2SAT 98
[2023-09-17] MEDS: Nicotine Polacrilex 2 MG GUM 4 MG BUCCAL ×3 (09:16→18:38)
[2023-09-17] MEDS: OLANZapine 5 MG TABLET PO ×2 (11:37→18:38)
--- NOTE | 2023-09-17 12:15 | HO.PSYCHPN ---
Subjective Subjective Date of Service: 09/17/23 Reason For Visit: F33.2, F64.1, F1.9 Subjective Notes: Conditional Voluntary Interim History: Pt slept through the night. Pt reports suicidal ideation has subsided and he feels safe returning home. He has been taking clonidine at bedtime and prn olanzapine regularly once a day with good effect. No side effects with current medications. He also reports mood is less depressed and he is looking forward to be discharged tomorrow. We went over his medications, and sent them to the pharmacy. Pt has been visible on the unit, social with select peers. Review of Systems Review of Systems General: No fevers, malaise, unintentional weight loss HEENT: No blurred vision, diplopia. No sore throat, nasal congestion, rhinorrhea, sinus pain, ear pain Cardiovascular: No chest pain, palpitations, or leg edema Respiratory: No shortness of breath, wheezing, cough GI: No abdominal pain, nausea, vomiting, diarrhea, constipation, melena, hematochezia : No dysuria, hematuria, increased urinary frequency, decreased urinary output MSK: No myalgia, back pain Neuro: No headaches, weakness, paresthesias. +positional lightheadedness Skin: No rashes or lesions Yes all other systems are reviewed and are negative Mental Status Exam Mental Status Exam Narrative: Pt is alert and oriented x3; behavior cooperative, friendly and calm; patient is not in distress; dressed in casual attire, glasses, facial hair, adequate hygiene; mood is described as better and affect congruent, brighter, more calm; eye contact appropriate; Speech is normal rate, volume and prosody and not pressured; no psychomotor agitation/retardation present; thought process is organized and goal directed; Thought content is on trying to be more hopeful; tx; otherwise pertinent to relevant topics and without any delusional content, paranoid ideations or grandiosity; currently no SI; no HI. There is no evidence of perceptual disturbance. Patients insight and judgment impaired but improving. Diagnostics Vital Signs (24Hr): Vital Signs - 24 hr 09/16/23 20:00 09/17/23 08:20 Temperature 98.4 F 98.7 F Pulse Rate 95 66 Respiratory Rate 18 16 Blood Pressure 136/63 131/64 Pulse Oximetry 100 98 Oxygen Delivery Method Room Air Room Air BMI result Body Mass Index 27.7 Medications Medications Current Medications Acetaminophen (Acetaminophen 325 Mg Tablet) 650 mg PO Q6H PRN PRN Reason: Headache/Pain Mild Scale (1-3) Last Admin: 09/15/23 20:11 Dose: 650 mg Al Hydroxide/Mg Hydroxide (Magnesium Hydrox/Alum Hydrox 30 Ml Oral.Susp) 30 ml PO Q6H PRN PRN Reason: Heartburn/Nausea Atorvastatin Calcium (Atorvastatin Calcium 40 Mg Tablet) 40 mg PO DAILY [facility] Last Admin: 09/17/23 08:16 Dose: 40 mg Clonidine HCl (Clonidine Hcl 0.1 Mg Tablet) 0.1 mg PO Q4H PRN; Protocol PRN Reason: mild anxiety Last Admin: 09/16/23 21:43 Dose: 0.1 mg Hydroxyzine HCl (Hydroxyzine Hcl 25 Mg Tablet) 25 mg PO Q6H PRN PRN Reason: Anxiety Last Admin: 09/16/23 21:04 Dose: 25 mg Lamotrigine (Lamotrigine 100 Mg Tablet) 100 mg PO DAILY [facility] Last Admin: 09/17/23 08:16 Dose: 100 mg Magnesium Hydroxide (Milk Of Magnesia 30 Ml Oral.Susp) 30 ml PO DAILY PRN PRN Reason: Constipation Last Admin: 09/15/23 08:08 Dose: 30 ml Nicotine (Nicotine 14 Mg Patch.Td24) 14 mg TRANSDERMA DAILY PRN PRN Reason: smoking cessation Last Admin: 09/14/23 11:51 Dose: 14 mg Nicotine Polacrilex (Nicotine Polacrilex 2 Mg Gum) 4 mg BUCCAL Q2H PRN PRN Reason: nicotine cravings Last Admin: 09/17/23 09:16 Dose: 4 mg Pt Own ( Norethindrone 5 Mg Tablet) 2 each PO DAILY [facility] Last Admin: 09/17/23 08:16 Dose: 2 each Olanzapine (Olanzapine 5 Mg Tablet) 5 mg PO Q4H PRN PRN Reason: agitation Last Admin: 09/17/23 11:37 Dose: 5 mg Prazosin HCl (Prazosin Hcl 1 Mg Capsule) 1 mg PO BEDTIME [facility] Last Admin: 09/16/23 21:43 Dose: 1 mg Trazodone HCl (Trazodone Hcl 50 Mg Tablet) 50 mg PO BEDTIME MRX1 PRN PRN Reason: Insomnia Last Admin: 09/16/23 21:43 Dose: 50 mg Venlafaxine HCl (Venlafaxine Hcl Er 75 Mg Cap.Er.24h) 75 mg PO DAILY [facility] Last Admin: 09/17/23 08:16 Dose: 75 mg Allergies Allergies Allergy/AdvReac Type Severity Reaction Status Date / Time No Known Allergies Allergy Verified 09/10/23 12:13 Assessment & Plan Assessment & Plan (1) MDD (major depressive disorder): Status: Acute Code(s): F32.9 - Major depressive disorder, single episode, unspecified (2) PTSD (post-traumatic stress disorder): Status: Acute Code(s): F43.10 - Post-traumatic stress disorder, unspecified (3) OCD (obsessive compulsive disorder): Status: Acute Code(s): F42.9 - Obsessive-compulsive disorder, unspecified Plan Pt is a 23 yo trans male with hx of depression, PTSD who presents for worsening depression and SI. Pt reports he's been taking current low dose of medications consistently for a year (Effexor 37.5mg and Lamictal 50mg) but has remained depressed. Depression has been worsening for past 3 months, feeling he has no confidence... and even worse for past 2 weeks, dealing with financial stressors, making her chronic SI which is normally fleeting, become present all the time. He says this week he ended up in a dark spot and his daily, chronic, passive SI became active; he realized it would not take much longer for his to start to develop plans and intent and so boyfriend called for help. Pt has On going ptsd symptoms, including dissociative episodes. Pt denies any AVH; denies hx of manic symptoms; denies drug/alcohol abuse. Endorses OCD symptoms and explains food rituals, intrusive thoughts that food will be contaminated with; has insight to know not true, but remain present; intrusive thought of need to turn certain way before sitting. -this AM she had dissociative episode, got dysregulated and agitated but was redirectable, took prn medicaiton and episode resolved. Hospital course: 09/11 improved mood, brighter affect; enjoying milue; sleeping well enough. Will leave meds as is for now 09/12 Continue treatment 09/13: continue current management and treatment plan. 09/14: continue current management and treatment plan. 09/16 stable, ready for dc tomorrow. Plan: CV q15 Continue Effexor XR to 75mg (has been on 37.5mg for a year) Continue Lamictal to 100mg (has been on 50mg for a year) Holding Propranolol due to lowered HR (which might be chronic; med might not be a problem, but also might not be helpful) Patient Own medication Norethindrone Hospitalist KARISHMA recs: #Transgender male on hormone replacement -If possible, have pt's family/friend being in norethidrone as this (nor anything similar) is available on formulary. There is no harm in not being on medication, but patient will continue to menstruate and is reporting heavy flow. Encourage increased fluid intake -Pt has not taken IM testosterone since 08/18. Not available on formulary. Can be brought from home if possible, otherwise ok to resume on discharge #Chronic low back pain -continue gabapentin #Positional palpitations -VSS on review of chart -check orthostatic VS -encourage PO intake #HLD -Total cholesterol 319, LDL 270 -statin therapy typically not indicated in adults <40. However, in pt with LDL >190, statin therapy recommended -start atorvastatin 40mg daily -outpt follow up Reason for continued inpatient stay Substantial Risk for: inability to function Time Spent With Patient Time: Total time managing care of this patient today ____ minutes.
[2023-09-17 20:00] VITALS: BP 128/75; PULSE 124; TEMP 36.7; O2SAT 97
[2023-09-17] MEDS: hydrOXYzine HCL 25 MG TABLET PO (20:45)
[2023-09-17] MEDS: traZODone HCL 50 MG TABLET PO (20:45)
[2023-09-17] MEDS: Prazosin HCL 1 MG CAPSULE PO (20:45)
[2023-09-17] MEDS: cloNIDine HCL 0.1 MG TABLET PO (20:45)
[2023-09-18] MEDS: Acetaminophen 325 MG TABLET 650 MG PO (06:21)
[2023-09-18] MEDS: Atorvastatin Calcium 40 MG TABLET PO (08:20)
[2023-09-18] MEDS: Venlafaxine HCl ER 75 MG CAP.ER.24H PO (08:20)
[2023-09-18] MEDS: lamoTRIgine 100 MG TABLET PO (08:20)
[2023-09-18 08:41] VITALS: BP 106/56; PULSE 82; RESP 18; TEMP 37.2; O2SAT 98
[2023-09-18] MEDS: Nicotine Polacrilex 2 MG GUM 4 MG BUCCAL (09:11)
--- NOTE | 2023-09-18 09:15 | P.DS_ITS ---
DS: Providers Provider Date of Service: 09/18/23 Date of admission: 09/10/23 18:27 Date of discharge: 09/18/23 Primary care physician: Teo Turpin MD Consults: 09/10/23 20:22 Consult to Hospitalist Routine Comment: Consulting Provider: Hospitalist Reason For Exam: new admit. h&p Discharging clinician: Yusra Thurston DS: Diagnosis Discharge Diagnosis (1) MDD (major depressive disorder): Status: Acute (2) PTSD (post-traumatic stress disorder): Status: Acute (3) OCD (obsessive compulsive disorder): Status: Acute DS: Medications Discharge Medications Home Medications: Home Medications ?Medication ?Instructions ?Recorded ?Confirmed gabapentin 300 mg PO DAILY PRN Anxiety 09/10/23 09/10/23 hydroxyzine pamoate 25 mg PO DAILY PRN Anxiety 09/10/23 09/10/23 lamotrigine 25 mg PO DAILY 09/10/23 09/10/23 norethindrone acetate 5 mg PO DAILY 09/10/23 09/10/23 prazosin 1 mg PO BEDTIME 09/10/23 09/10/23 propranolol 60 mg PO DAILY 09/10/23 09/10/23 testosterone 60 mg IM DIRECTED 09/10/23 09/10/23 venlafaxine 37.5 mg PO DAILY 09/10/23 09/10/23 Previous Rx's ?Medication ?Instructions ?Recorded atorvastatin 40 mg tablet 40 mg PO DAILY #30 tabs 09/17/23 clonidine HCl 0.1 mg tablet 0.1 mg PO BEDTIME PRN mild anxiety 09/17/23 #30 tabs lamotrigine 100 mg tablet 100 mg PO DAILY #30 tabs 09/17/23 olanzapine 5 mg tablet 5 mg PO BID PRN agitation #60 tabs 09/17/23 prazosin 1 mg capsule 1 mg PO BEDTIME #30 caps 09/17/23 trazodone 50 mg tablet 50 mg PO BEDTIME PRN Insomnia #30 09/17/23 tabs venlafaxine 75 mg capsule,extended 75 mg PO DAILY #30 caps 09/17/23 release 24 hr Mental Status Exam Mental Status Exam Narrative: Pt is alert and oriented x3; behavior cooperative, friendly and calm; patient is not in distress; dressed in casual attire, glasses, facial hair, adequate hygiene; mood is described as better and affect congruent, brighter, more calm; eye contact appropriate; Speech is normal rate, volume and prosody and not pressured; no psychomotor agitation/retardation present; thought process is organized and goal directed; Thought content is on trying to be more hopeful; tx; otherwise pertinent to relevant topics and without any delusional content, paranoid ideations or grandiosity; currently no SI; no HI. There is no evidence of perceptual disturbance. Patients insight and judgment impaired but improving. Data Data Completed and Pending Completed studies during hospitalization [Text1]: 09/11/23 09:18 Estimat Average Glucose 94 Hemoglobin A1c % 4.9 Magnesium 2.0 Triglycerides 113 Cholesterol 319 H LDL Cholesterol, Calc 270 H HDL Cholesterol 27 L Vitamin B12 307 Folate 9.3 TSH 1.48 Free T4 1.28 DS: Summary Hospital Course Hospital Course: Pt is a 23 yo trans male with hx of depression, PTSD who presents for worsening depression and SI. Pt reports he's been taking current low dose of medications consistently for a year (Effexor 37.5mg and Lamictal 50mg) but has remained depressed. Depression has been worsening for past 3 months, feeling he has no confidence... and even worse for past 2 weeks, dealing with financial stressors, making her chronic SI which is normally fleeting, become present all the time. He says this week he ended up in a dark spot and his daily, chronic, passive SI became active; he realized it would not take much longer for his to start to develop plans and intent and so boyfriend called for help. Pt has On going ptsd symptoms, including dissociative episodes. Pt denies any AVH; denies hx of manic symptoms; denies drug/alcohol abuse. Endorses OCD symptoms and explains food rituals, intrusive thoughts that food will be contaminated with; has insight to know not true, but remain present; intrusive thought of need to turn certain way before sitting. -this AM she had dissociative episode, got dysregulated and agitated but was redirectable, took prn medicaiton and episode resolved. this AM she had dissociative episode, got dysregulated and agitated but was redirectable, took prn medicaiton and episode resolved. HOSPITAL COURSE On the unit, pt was admitted on a CV and placed on 15 minutes checks for safety. Pt presented with increase suicidal ideation and urges to self harm. After discussing risks, benefits and alternative treatment options, pt agreed to increase effexor to 75mg po daily and lamictal 100mg po daily. His affect gradually presented as brighter. Pt was more visible on the unit, social and participating in assigned groups. There were no incidences of disruptive behaviors, nor need for restraints. He used clonidine at night for anxiety. He used olanzapine 5mg po prn mostly in the morning which he would like to continue PRN for anxiety. Status at Discharge Cognitive/behavioral status at discharge: Pt with bright non labile. No SI/HI. No psychosis or delusions. Insight/judgment: intact. Alert, oriented x 3. Mood is improved. No aggression towards self or others. Functional status at discharge: independent ambulation Overall status at discharge: patient is progressing back to baseline Time Spent with Patient Time attestation: Total time managing care of this patient today _35___ minutes. Time spent: Greater than 30 minutes Discharge Plan Discharge Anticipated Discharge Date/Time: 09/18/23 09:17 Patient Disposition: Home, Self-Care Discharge Diagnosis: Mood Disorder Referrals: [facility] PHP program [Other] - 1 Week (Patient referred to [facility] partial hospitalization program You should follow-up with program after discharge and provide updated insura nce information if needed.) [facility]: Teo Asencio (Psychiatrist) [Other] - 09/25/23 3:30 pm (Follow-up hospital discharge appointment with psychiatric provider. Appointment is by tele-health) [facility]: [facility] [Other] - 1 Week (Patient may self present to be evaluated for services. You should request referral to [facility] program) Teo Turpin MD [Primary Care Provider] - 1 Week Discharge Medications: New atorvastatin 40 mg Tablet 40 mg PO DAILY Qty: 30 0RF clonidine HCl 0.1 mg Tablet 0.1 mg PO BEDTIME PRN (Reason: mild anxiety) Qty: 30 0RF Protocol: Hold for SBP< HOLD for SBP < : 90 venlafaxine 75 mg Capsule,Extended Release 24hr 75 mg PO DAILY Qty: 30 0RF trazodone 50 mg Tablet 50 mg PO BEDTIME PRN (Reason: Insomnia) Qty: 30 0RF prazosin 1 mg Capsule 1 mg PO BEDTIME Qty: 30 0RF lamotrigine 100 mg Tablet 100 mg PO DAILY Qty: 30 0RF olanzapine 5 mg Tablet 5 mg PO BID PRN (Reason: agitation) Qty: 60 0RF Continued norethindrone acetate tablet 5 mg PO DAILY testosterone 60 mg IM DIRECTED Patient Comments: pt takes it every week on Tuesdays Discontinued hydroxyzine pamoate 25 mg PO DAILY PRN (Reason: Anxiety) Rx Instructions: at bedtime lamotrigine 25 mg PO DAILY Rx Instructions: x2 tablets at bedtime per pt prazosin capsule 1 mg PO BEDTIME propranolol 60 mg PO DAILY Rx Instructions: at bedtime gabapentin tablet 300 mg PO DAILY PRN (Reason: Anxiety) Rx Instructions: per pt, exterminator termite chronic pain management venlafaxine 37.5 mg PO DAILY Patient Comments: at bedtime per pt Discharge Orders: Discharge Order (Routine); Ordered 09/18/23 Ordered By: Yusra Thurston Diet: Regular diet Activity on Discharge: As tolerated Stand Alone Forms: Patient Portal Discharge page, Community Support Print Language: Afghan Care Plan Goals: 1. Maintain mood 2. No SI/HI 3. No self harm behaviors Health Concerns: Follow up with PCP for routine care Plan of Treatment: 1. Take medications as prescribed. 2. Go to nearest ED or call 911 in event of emergency Assessment: Pt with brighter affect. No SI/HI. No overt psychosis or delusions. Sleeping well. No self harm behaviors. Future oriented.
== END 2023-09-18 10:56 | disposition home or self-care (01) | DRG 754 ==
PROVIDERS: Clinical Nurse Specialist Psychiatric/Mental Health, Adult; Admitting Provider Psychiatry & Neurology Psychiatry; PCP Pediatrics; Visit Provider Psychiatry & Neurology Psychiatry
DX: F32.9 Major depressive disorder, single episode, unspecified (principal); Q61.3 Polycystic kidney, unspecified; R45.851 Suicidal ideations; F42.9 Obsessive-compulsive disorder, unspecified; F43.10 Post-traumatic stress disorder, unspecified; E78.5 Hyperlipidemia, unspecified; G89.29 Other chronic pain; M54.50 Low back pain, unspecified; F64.0 Transsexualism; F17.210 Nicotine dependence, cigarettes, uncomplicated; Z71.6 Tobacco abuse counseling; Z91.040 Latex allergy status; Z79.899 Other long term (current) drug therapy
CPT/HCPCS: 36415; 80061; 82607; 82746; 83036; 83735; 84439; 84443

== ENCOUNTER → 2023-09-10 18:27 | Outpatient (BNV) | payer MEDICAID, SELFPAY | PROVIDERS: Admitting Provider Psychiatry & Neurology Psychiatry; PCP Pediatrics; Visit Provider Psychiatry & Neurology Psychiatry | DX: F32.9 Major depressive disorder, single episode, unspecified (principal); F43.10 Post-traumatic stress disorder, unspecified; F42.9 Obsessive-compulsive disorder, unspecified | CPT/HCPCS: 90792; 99231; 99232; 99239 ==

== ENCOUNTER → 2023-09-10 18:27 | Outpatient (BNV) | payer SELFPAY | PROVIDERS: Admitting Provider Psychiatry & Neurology Psychiatry; PCP Pediatrics; Visit Provider Physician Assistant | DX: Z02.2 Encounter for examination for admission to residential institution (principal) | CPT/HCPCS: 99429 ==

== ENCOUNTER 2023-09-20 12:11 | Inpatient (IN) | payer MEDICAID, SELFPAY ==
[2023-09-20 12:14] VITALS: BP 123/68; PULSE 91; RESP 19; TEMP 36.6; O2SAT 98; BMI 28.3
--- NOTE | 2023-09-20 12:18 | ED_ITS ---
HPI - Psych General Chief Complaint: Psychiatric Symptoms Stated Complaint: crisis eval Time Seen by Provider: 09/20/23 12:43 Source: patient Mode of arrival: EMS History of Present Illness HPI Narrative: 23-year-old male who presents after having been discharged from last week, states that he has not been compliant with his medications as he has no way to pick them up and is feeling too overwhelmed to attempt to navigate alternative ways of obtaining his medications. Endorses smoking weed this morning but no other substance use since discharge last week. Related Data Home Medications ?Medication ?Instructions ?Recorded ?Confirmed norethindrone acetate 5 mg PO DAILY 09/10/23 09/20/23 testosterone 60 mg IM DIRECTED 09/10/23 09/20/23 Previous Rx's ?Medication ?Instructions ?Recorded atorvastatin 40 mg tablet 40 mg PO DAILY #30 tabs 09/17/23 clonidine HCl 0.1 mg tablet 0.1 mg PO BEDTIME PRN mild anxiety 09/17/23 #30 tabs lamotrigine 100 mg tablet 100 mg PO DAILY #30 tabs 09/17/23 olanzapine 5 mg tablet 5 mg PO BID PRN agitation #60 tabs 09/17/23 prazosin 1 mg capsule 1 mg PO BEDTIME #30 caps 09/17/23 trazodone 50 mg tablet 50 mg PO BEDTIME PRN Insomnia #30 09/17/23 tabs venlafaxine 75 mg capsule,extended 75 mg PO DAILY #30 caps 09/17/23 release 24 hr Allergies Allergy/AdvReac Type Severity Reaction Status Date / Time latex Allergy Rash Verified 09/20/23 12:17 Review of Systems 2 Review of Systems: Pertinent positives and negatives as stated in HPI PMFSH Past Medical History Source: nursing notes reviewed Medical History OCD (obsessive compulsive disorder) PTSD (post-traumatic stress disorder) On hormone replacement therapy Vitamin D deficiency MDD (major depressive disorder) PCOS (polycystic ovarian syndrome) Social History Social History Household Members: Friend(s) Household Members Other:: 3 roomates Housing: Apartment Do you presently have visiting nurse or other home services: No Alcohol intake: never Patient Tobacco Use Status: Current everyday Tobacco user Tobacco use type: Cigarette Cigarettes Per Day: 4 Smoked in Last 30 Days: Yes e-Cigarette/Vaping Use: Never Used Second Hand Smoke Exposure: No Use of substances other than those prescribed or required for medical reasons: Yes Substance Use Type: Marijuana Substance Use Frequency: Daily Last Used Substance: Just Prior to Admission Any prior treatment program specific to substance use: No Advance Directives: No Advance Directives Information Provided: Yes Do you have a plan to hurt others: No Plan service: No Sexual orientation: Decline to Answer Physical Exam 2 Vital Signs: Vital Signs: Last Vital Signs Temp 98.0 F 09/20/23 12:47 Pulse 91 09/20/23 12:47 Resp 19 09/20/23 12:47 BP 123/68 09/20/23 12:47 Pulse Ox 98 09/20/23 12:47 O2 Del Method Room Air 09/20/23 12:47 BMI result Body Mass Index 28.3 VITAL SIGNS: Reviewed. GENERAL: Well developed, well nourished, in no acute distress. HEAD: Normocephalic/atraumatic EYES: PERRLA, EOMI EARS: Ext canals without abnormality NOSE: Nares patent bilateral OROPHARYNX: no oral lesions noted, posterior pharynx clear NECK: Supple, no adenopathy LUNGS: Normal breath sounds. No adventitious sounds or accessory muscle use. SpO2<98> CARDIOVASCULAR: Regular rate and rhythm without noted murmurs ABDOMEN: Soft, non-tender, non-distended with bowel sounds. MUSCULOSKELETAL: No tenderness, deformities, or effusions noted on gross inspection. EXTREMITIES: No cyanosis, clubbing or edema. SKIN: Inspection of the skin reveals no rashes NEUROLOGIC: Alert and oriented x 4. Strength and sensation to light touch were grossly intact x 4, cranial nerves 2-12 are grossly intact. PSYCH: Tearful, depressed affect Course Course Course Narrative: This is a rapid medical exam performed by Ursula Case NP: Additional HPI, ROS, PE not included below will be deferred to primary provider. Patient is a 23-year-old male with history of OCD, PTSD, MDD presenting to the emergency department with suicidal ideation without plan. Recently discharged from . States has not been coping well since discharge. Admits to using marijuana this morning which did not change symptoms. Plan: Patient brought directly to Behavioral Health pod Medical Decision Making Medical Decision Making MDM Narrative: 23-year-old male with history and clinical presentation, DDX: Depression, SI, care team evaluation. I reviewed all investigations and there is a noninfectious leukocytosis with a normocytic anemia no thrombocytopenia. Chemistry and sees negative for PORSCHE/electrolyte or liver enzyme derangements. Urinalysis negative for UTI or hematuria and alcohol undetectable, UDS still pending. Patient is otherwise medically cleared, it does appear the patient has admission orders at this time. Differential Diagnosis Differential Diagnoses: The differential diagnosis associated with the presentation includes Please see the discussion above Admission/Observation Consideration of admission/observation: Escalation of care including admission/observation considered Please see the discussion above Consult Healthcare Provider Management of the patient was discussed with: Compactor Driver Please see the discussion above Lab Data MDM Lab Attestation statement: I reviewed the patient's lab results. Please see the discussion above 09/20/23 14:12 09/20/23 14:12 Labs: Lab Results 09/20/23 Range/Units 14:12 WBC 11.2 H (4.8-10.8) X10*3/uL RBC 4.56 L (4.60-5.80) X10*6/uL Hgb 13.6 L (14.0-18.0) g/dl Hct 39.9 L (42.0-52.0) % MCV 87.5 (80.0-98.0) fL MCH 29.8 (27.0-33.0) pg MCHC 34.1 (31.0-36.0) g/dl RDW 12.2 (11.0-16.0) % Plt Count 215 (160-400) X10*3/uL MPV 9.2 L (9.4-12.4) fL Immature Gran % (Auto) 0.2 (0.0-0.4) % Neut % (Auto) 53.7 (45-73) % Lymph % (Auto) 33.7 (20-40) % Barron % (Auto) 7.7 (2-11) % Eos % (Auto) 4.5 H (0-4) % Baso % (Auto) 0.2 (0-2) % Lymph # (Auto) 3.8 (1.2-4.9) X10*3/uL Barron # (Auto) 0.9 (0.1-1.2) X10*3/uL Eos # (Auto) 0.5 H (0.0-0.4) X10*3/uL Baso # (Auto) 0.0 (0.0-0.2) X10*3/uL Abs Immat Gran (auto) 0.02 (0.00-0.03) X10*3/uL Absolute Neuts (auto) 6.0 (2.0-8.3) x10*3/uL Absolute Nucleated RBC 0.000 (0.0-0.012) X10*3/uL Nucleated RBC % (auto) 0.0 (0.0-0.2) /100WBC Sodium 140 (135-145) mmol/L Potassium 4.4 (3.3-5.1) mmol/L Chloride 110 H (96-108) mmol/L Carbon Dioxide 23 (22-29) mmol/L Anion Gap 11 L (12-20) BUN 14 (9-16) mg/dL Creatinine 0.68 (0.5-1.4) mg/dL Estim Creat Clear Calc 163.2 Estimated GFR > 60 Random Glucose 84 (60-115) mg/dL Calcium 9.2 (8.4-10.2) mg/dL Total Bilirubin 0.3 (0.0-1.0) mg/dL AST 17 (5-37) U/L ALT 22 (0-40) U/L Alkaline Phosphatase 53 (39-117) U/L Total Protein 6.1 L (6.5-8.0) g/dL Albumin 3.8 (3.5-5.0) g/dL Ethyl Alcohol < 10 mg/dL External Record Review External record reviewed: Outpatient record and Prior outpatient labs Critical Care Time Critical Care Time Critical Care Time: Yes Total Critical Care Time: 45 Attestation: I personally attest to this time spent taking care of the patient. Discharge Plan Discharge Clinical Impression: Depression, Suicidal ideation Patient Disposition: Admitted As Inpatient Interventions: Kimball-Suicide Risk Severity Scale Last Done: 09/20/23 12:49
[2023-09-20 12:47] VITALS: BP 123/68; PULSE 91; RESP 19; TEMP 36.7; O2SAT 98
[2023-09-20 14:22] LABS: MANUAL DIFF FLAG NO
[2023-09-20 14:23] LABS: Basophils Percent Auto 0.2 % (0-2); Eosinophils Absolute Auto 0.5 X10*3/uL (0.0-0.4); Eosinophils Percent Auto 4.5 % (0-4); Hematocrit 39.9 % (42.0-52.0); Hemoglobin 13.6 g/dl (14.0-18.0); Imm Gran Abs Auto 0.02 X10*3/uL (0.00-0.03); Imm Gran Pct Auto 0.2 % (0.0-0.4); Lymphocytes Absolute Auto 3.8 X10*3/uL (1.2-4.9); Lymphocytes Percent Auto 33.7 % (20-40); Mean Corpuscular HGB Conc 34.1 g/dl (31.0-36.0); Mean Corpuscular Hemoglobin 29.8 pg (27.0-33.0); Mean Corpuscular Volume 87.5 fL (80.0-98.0); Mean Platelet Volume 9.2 fL (9.4-12.4); Monocytes Absolute Auto 0.9 X10*3/uL (0.1-1.2); Monocytes Percent Auto 7.7 % (2-11); Neutrophils Percent Auto 53.7 % (45-73); Platelet Count 215 X10*3/uL (160-400); Red Blood Count 4.56 X10*6/uL (4.60-5.80); Red Cell Distribution Width 12.2 % (11.0-16.0); White Blood Count 11.2 X10*3/uL (4.8-10.8)
--- NOTE | 2023-09-20 14:37 | MHC.EDTECH ---
Belongings placed in locker #2
[2023-09-20 14:41] LABS: Alanine Aminotransferase 22 U/L (0-40); Albumin Level 3.8 g/dL (3.5-5.0); Alkaline Phosphatase 53 U/L (39-117); Anion Gap 11 (12-20); Aspartate Amino Transferase 17 U/L (5-37); Bilirubin Total 0.3 mg/dL (0.0-1.0); Blood Urea Nitrogen 14 mg/dL (9-16); Calcium 9.2 mg/dL (8.4-10.2); Carbon Dioxide 23 mmol/L (22-29); Chloride 110 mmol/L (96-108); Creatinine Clr Calc Pharmacy 163.2; Estimated Glomerular Filt Rate > 60; Ethanol < 10 mg/dL; Glucose Random 84 mg/dL (60-115); Potassium 4.4 mmol/L (3.3-5.1); Sodium 140 mmol/L (135-145); Total Protein 6.1 g/dL (6.5-8.0)
[2023-09-20 16:28] LABS: Appearance Urine Cloudy; Color Urine Yellow; Glucose Urine UA Negative (Negative); Leukocyte Esterase Urine Small (1+) (Negative); Nitrite Urine Negative (Negative); PH 6.5 (5.0-9.0); Specific Gravity - Urine >= 1.030 (1.005-1.025); UMIC TRIGGER UACC YES; Urine Blood Negative (Negative); Urine Ketones Negative (Negative); Urine Protein Trace mg/dL (Neg-Trace)
[2023-09-20 16:48] LABS: Bacteria Urine Trace (None Seen); Hyaline Casts Urine 0-2 /LPF (0-2); RBC Urine 0-2 /HPF (0-2); UACC Culture Trigger YES; WBC Urine 0-5 /HPF (0-5)
[2023-09-20 17:08] LABS: Amphetamine Screen Urine Not Detected (Not Detect); Barbiturates, Urine Not Detected (Not Detect); Benzodiazepines Screen Urine Not Detected (Not Detect); Buprenorphine Scr Not Detected (Not Detect); Cannabinoid Screen Urine POSITIVE (Not Detect); Cocaine Screen Urine Not Detected (Not Detect); Fentanyl, urine Not Detected (Not Detect); Methadone Screen, Urine Not Detected (Not Detect); Opiate Screen Urine Not Detected (Not Detect); Oxycodone Screen Urine Not Detected (Not Detect); Phencyclidine Screen Urine Not Detected (Not Detect)
[2023-09-20] MEDS: hydrOXYzine HCL 25 MG TABLET PO (17:23)
[2023-09-20 20:25] VITALS: BP 116/58; PULSE 69; RESP 18; TEMP 36.4; O2SAT 96
[2023-09-20] MEDS: traZODone HCL 50 MG TABLET PO (21:21)
[2023-09-20] MEDS: OLANZapine 5 MG TABLET PO (21:21)
--- NOTE | 2023-09-20 21:51 | PC.ADMIT ---
Geraldo is a trans male admitted to on 09/20/2023 at 2021 from the emergency room. Admitting diagnosis SI and depression. On admission Geraldo is alert and oriented x 4, affect flat. Per record Geraldo was recently discharged from . Per noted patient was non compliant with medications upon discharge. Geraldo confirmed that he has not been taking his medication because of insurance and transportation. Per patient he has not been able to obtain [place] insurance, he currently has [place] insurance but lives in [place]. Patient endorses suicidal ideation but denies having a plan, per patient he attempted several years ago. He has a history of major depressive disorder, OCD, PTSD, PCOS and vitamin D deficiency. Initially he is pleasant and participating with admission process, consented to skin check and signed consents. Geraldo gradually became agitated during the admission stating I cant do this anymore. This consumer loan underwriter offered to stop and offered PRN zyprexa and trazedone. Patient consented, this consumer loan underwriter walked Geraldo to his assigned room, he immediately became agitated, yelling at this consumer loan underwriter. I dont know what I am doing. What is going on? Per patient His roommate was grunting, this consumer loan underwriter did not observe roomate grunting. Patient then became angry threw crumpled paper towards this consumer loan underwriter, then sat on the floor. Patient then started to bang his head against the wall yelling I just want to hurt myself. This consumer loan underwriter and chargemaster analyst offered emotional support to patient at this time, he gradually calmed down and return to room. Dr. Mendosa notified, new order obtained for 5 minute checks. DAVEY BUENROSTRO.
[2023-09-21 08:00] VITALS: BP 117/69; PULSE 71; RESP 18; TEMP 37.2; O2SAT 98
[2023-09-21] MEDS: Venlafaxine HCl ER 75 MG CAP.ER.24H PO (08:36)
[2023-09-21] MEDS: lamoTRIgine 100 MG TABLET PO (08:36)
--- NOTE | 2023-09-21 10:21 | HE.PHANOTE ---
Norethindrone Patient brought in own norethindrone which was being stored in pharmacy [id number]. MD ordered med off home medication list and med was pulled from safe and sent to the floor. Norethindrone dose verified with patient and pharmacy. Dose is 10 mg daily ( 2 tablets)
--- NOTE | 2023-09-21 11:59 | HO.PSYADMNOT ---
[facility] Date of Service: 09/21/23 Chief Complaint: depression Sources of Information: patient interviewed and chart reviewed HPI Subjective Notes: Conditional Voluntary Narrative: Discharge Summary 09/18/23: Pt is a 23 yo trans male with hx of depression, PTSD who presents for worsening depression and SI. Pt reports he's been taking current low dose of medications consistently for a year (Effexor 37.5mg and Lamictal 50mg) but has remained depressed. Depression has been worsening for past 3 months, feeling he has no confidence... and even worse for past 2 weeks, dealing with financial stressors, making her chronic SI which is normally fleeting, become present all the time. He says this week he ended up in a dark spot and his daily, chronic, passive SI became active; he realized it would not take much longer for his to start to develop plans and intent and so boyfriend called for help. Pt has On going ptsd symptoms, including dissociative episodes. Pt denies any AVH; denies hx of manic symptoms; denies drug/alcohol abuse. Endorses OCD symptoms and explains food rituals, intrusive thoughts that food will be contaminated with; has insight to know not true, but remain present; intrusive thought of need to turn certain way before sitting. On the unit, pt was admitted on a CV and placed on 15 minutes checks for safety. Pt presented with increase suicidal ideation and urges to self harm. After discussing risks, benefits and alternative treatment options, pt agreed to increase effexor to 75mg po daily and lamictal 100mg po daily. His affect gradually presented as brighter. Pt was more visible on the unit, social and participating in assigned groups. There were no incidences of disruptive behaviors, nor need for restraints. He used clonidine at night for anxiety. He used olanzapine 5mg po prn mostly in the morning which he would like to continue PRN for anxiety. ED Note 09/20/23: 23-year-old male who presents after having been discharged from last week, states that he has not been compliant with his medications as he has no way to pick them up and is feeling too overwhelmed to attempt to navigate alternative ways of obtaining his medications. Endorses smoking weed this morning but no other substance use since discharge last week. Today: Patient reports there being significant external stressors that were not addressed during last admission, which they feel was the main reason for them needing readmission. Describe stressors including not having a car, not submitting taxes, needing to find a new place to stay by the end of the month and mom having a long-term illness. Also reported not being able to get medications due to not having transportation and therefore being without med since discharge. Reported feeling depressed, dysregulated, suicidal with intent, but denies plans I do not plan, just happens . Reports in the past and 1 suicide attempt in 2019 which was impulsive in nature and by overdose. denies paranoia or hallucinations. Psychiatrist Dr Giancarlo Mcallister at [facility]. NO therapist. Self harming since 13year old- has not self harmed in 11 months. Regarding treatment, agreed we will restart medications they were discharged on. Regarding stressors, patient acknowledges that hospital will not be able to changes, but might be able to help provide support around them or maximize patient's ability to manage them from a mental state perspective. Past Psychiatric History: last psych admission 2018 and M5 discharge 09/18/23. One suicide attempt 2019 (impulsive overdose). Psychiatrist Dr Giancarlo Mcallister at [facility]. NO therapist. Self harming since 13year old- has not self harmed in 11 months. Medical Evaluation Reviewed: Yes [facility] Medical History OCD (obsessive compulsive disorder) PTSD (post-traumatic stress disorder) On hormone replacement therapy Vitamin D deficiency MDD (major depressive disorder) PCOS (polycystic ovarian syndrome) Family History: deferred Social History: graduated HS; some college works 35 hours at [employer] has housing (needs to leave by end of September), lives with roommates; supportive boyfriend 2 years Trauma History: positive Diagnostics Vital Signs (24Hr): Vital Signs - 24 hr 09/20/23 12:14 09/20/23 12:47 09/20/23 20:25 Temperature 98 F 98.0 F 97.6 F Pulse Rate 91 91 69 Respiratory Rate 19 19 18 Blood Pressure 123/68 123/68 116/58 L Pulse Oximetry 98 98 96 Oxygen Delivery Method Room Air Room Air Room Air 09/21/23 08:00 Temperature 98.9 F Pulse Rate 71 Respiratory Rate 18 Blood Pressure 117/69 Pulse Oximetry 98 Oxygen Delivery Method Room Air BMI result Body Mass Index 28.3 Labs 09/20/23 14:12 09/20/23 14:12 Labs: Laboratory Results - last 48 hr 09/20/23 09/20/23 14:12 16:02 WBC 11.2 H RBC 4.56 L Hgb 13.6 L Hct 39.9 L MCV 87.5 MCH 29.8 MCHC 34.1 RDW 12.2 Plt Count 215 MPV 9.2 L Immature Gran % (Auto) 0.2 Neut % (Auto) 53.7 Lymph % (Auto) 33.7 Todd % (Auto) 7.7 Eos % (Auto) 4.5 H Baso % (Auto) 0.2 Lymph # (Auto) 3.8 Todd # (Auto) 0.9 Eos # (Auto) 0.5 H Baso # (Auto) 0.0 Abs Immat Gran (auto) 0.02 Absolute Neuts (auto) 6.0 Absolute Nucleated RBC 0.000 Nucleated RBC % (auto) 0.0 Sodium 140 Potassium 4.4 Chloride 110 H Carbon Dioxide 23 Anion Gap 11 L BUN 14 Creatinine 0.68 Estim Creat Clear Calc 163.2 Estimated GFR > 60 Random Glucose 84 Calcium 9.2 Total Bilirubin 0.3 AST 17 ALT 22 Alkaline Phosphatase 53 Total Protein 6.1 L Albumin 3.8 Urine Color Yellow Urine Appearance Cloudy Urine pH 6.5 Ur Specific [place] >= 1.030 H Urine Protein Trace Urine Glucose (UA) Negative Urine Ketones Negative Urine Blood Negative Urine Nitrite Negative Ur Leukocyte Esterase Small (1+) H Urine RBC 0-2 Urine WBC 0-5 Ur Squamous Epith Cells 3-5 Urine Bacteria Trace Hyaline Casts 0-2 Urine Opiates Screen Not Detected Ur Buprenorphine Scrn Not Detected Ur Oxycodone Screen Not Detected Urine Methadone Screen Not Detected Urine Fentanyl Screen Not Detected Ur Barbiturates Screen Not Detected Ur Phencyclidine Scrn Not Detected Ur Amphetamines Screen Not Detected U Benzodiazepines Scrn Not Detected Urine Cocaine Screen Not Detected U Marijuana (THC) Screen POSITIVE H Ethyl Alcohol < 10 Meds/Allergies Meds Home Medications ?Medication ?Instructions ?Recorded ?Confirmed ?Type testosterone 60 mg IM DIRECTED 09/10/23 09/20/23 History norethindrone acetate 5 mg tablet 10 mg PO DAILY 09/21/23 09/21/23 History Allergies Allergies Allergy/AdvReac Type Severity Reaction Status Date / Time latex Allergy Rash Verified 09/20/23 12:17 Mental Status Exam Mental Status Exam Narrative: casually dressed. Fairly engaged. Some irritability when discussing stressors and plans around same. Self-care okay. Organized. Endorses depression suicidal thoughts with no plans. No HI. No psychosis. Insight and judgment fair Assessment & Plan Assessment & Plan (1) MDD (major depressive disorder): Status: Acute Code(s): F32.9 - Major depressive disorder, single episode, unspecified (2) PTSD (post-traumatic stress disorder): Status: Acute Code(s): F43.10 - Post-traumatic stress disorder, unspecified Plan Regarding treatment, agreed we will restart medications they were discharged on. Regarding stressors, patient acknowledges that hospital will not be able to changes, but might be able to help provide support around them or maximize patient's ability to manage them from a mental state perspective. Patient educated on: medication risk/benefits Informed Consent: understands Reason for continued inpatient stay Substantial Risk for: harm to self Statement Statement: I have reviewed the history and physical and performed a pertinent examination on my patient. No changes have occurred unless specified. If the History and Physical was not performed prior to admission, the Hospitalist's service will be consulted for completing the admission physical. Time Spent With Patient Time: Total time managing care of this patient today ____ minutes.
[2023-09-21] MEDS: OLANZapine 5 MG TABLET PO ×2 (15:19→16:05)
[2023-09-21 20:00] VITALS: BP 107/58; PULSE 84; RESP 18; TEMP 36.4; O2SAT 98
[2023-09-21 20:36] VITALS: BP 107/60
[2023-09-21] MEDS: Prazosin HCL 1 MG CAPSULE PO (20:36)
[2023-09-21] MEDS: Atorvastatin Calcium 40 MG TABLET PO (20:36)
[2023-09-22] MEDS: Acetaminophen 325 MG TABLET 650 MG PO ×2 (07:49→13:50)
[2023-09-22] MEDS: Venlafaxine HCl ER 75 MG CAP.ER.24H PO (07:50)
[2023-09-22] MEDS: lamoTRIgine 100 MG TABLET PO (07:50)
[2023-09-22 08:00] VITALS: BP 133/81; PULSE 100; RESP 18; TEMP 36.9; O2SAT 97
[2023-09-22] MEDS: OLANZapine 5 MG TABLET PO (09:07)
--- NOTE | 2023-09-22 10:38 | P.PNPSI_ITS ---
Subjective Subjective Date of Service: 09/22/23 Reason For Visit: depression Subjective Notes: Conditional Voluntary Interim History: NO management issues. Adherent with medications. Irritable today. Frustrated with interview All I can say is I am suicidal and will kill myself if I was discharged today . Was able to engage more when discussed patients anger towards headline writer, with no clear reason/trigger for same. Agreed to increase lamictal to 150mg and prn olanzpaine to 10mg - it helps sometimes but not at others. Reported feeling supported by this plan. Medication Compliance: Yes Side effects from medications: No Attending Groups: Yes Review of Systems Acute medical concerns: No Review of Systems Review of Systems Yes all other systems are reviewed and are negative Mental Status Exam Mental Status Exam Narrative: casually dressed. Fairly engaged. Irritability. Self-care okay. Organized. Endorses depression and suicidal thoughts with no plans. No HI. No psychosis. Insight and judgment fair Diagnostics Vital Signs (24Hr): Vital Signs - 24 hr 09/21/23 20:00 09/21/23 20:36 09/22/23 08:00 Temperature 97.5 F 98.5 F Pulse Rate 84 100 Respiratory Rate 18 18 Blood Pressure 107/58 L 107/60 133/81 Pulse Oximetry 98 97 Oxygen Delivery Method Room Air Room Air BMI result Body Mass Index 28.3 Labs 09/20/23 14:12 09/20/23 14:12 Labs: Laboratory Results - last 48 hr 09/20/23 09/20/23 14:12 16:02 WBC 11.2 H RBC 4.56 L Hgb 13.6 L Hct 39.9 L MCV 87.5 MCH 29.8 MCHC 34.1 RDW 12.2 Plt Count 215 MPV 9.2 L Immature Gran % (Auto) 0.2 Neut % (Auto) 53.7 Lymph % (Auto) 33.7 Leake % (Auto) 7.7 Eos % (Auto) 4.5 H Baso % (Auto) 0.2 Lymph # (Auto) 3.8 Leake # (Auto) 0.9 Eos # (Auto) 0.5 H Baso # (Auto) 0.0 Abs Immat Gran (auto) 0.02 Absolute Neuts (auto) 6.0 Absolute Nucleated RBC 0.000 Nucleated RBC % (auto) 0.0 Sodium 140 Potassium 4.4 Chloride 110 H Carbon Dioxide 23 Anion Gap 11 L BUN 14 Creatinine 0.68 Estim Creat Clear Calc 163.2 Estimated GFR > 60 Random Glucose 84 Calcium 9.2 Total Bilirubin 0.3 AST 17 ALT 22 Alkaline Phosphatase 53 Total Protein 6.1 L Albumin 3.8 Urine Color Yellow Urine Appearance Cloudy Urine pH 6.5 Ur Specific [place] >= 1.030 H Urine Protein Trace Urine Glucose (UA) Negative Urine Ketones Negative Urine Blood Negative Urine Nitrite Negative Ur Leukocyte Esterase Small (1+) H Urine RBC 0-2 Urine WBC 0-5 Ur Squamous Epith Cells 3-5 Urine Bacteria Trace Hyaline Casts 0-2 Urine Opiates Screen Not Detected Ur Buprenorphine Scrn Not Detected Ur Oxycodone Screen Not Detected Urine Methadone Screen Not Detected Urine Fentanyl Screen Not Detected Ur Barbiturates Screen Not Detected Ur Phencyclidine Scrn Not Detected Ur Amphetamines Screen Not Detected U Benzodiazepines Scrn Not Detected Urine Cocaine Screen Not Detected U Marijuana (THC) Screen POSITIVE H Ethyl Alcohol < 10 Medications Medications Current Medications Acetaminophen (Acetaminophen 325 Mg Tablet) 650 mg PO Q6H PRN PRN Reason: Headache/Pain Mild Scale (1-3) Last Admin: 09/22/23 07:49 Dose: 650 mg Al Hydroxide/Mg Hydroxide (Magnesium Hydrox/Alum Hydrox 30 Ml Oral.Susp) 30 ml PO Q6H PRN PRN Reason: Heartburn/Nausea Atorvastatin Calcium (Atorvastatin Calcium 40 Mg Tablet) 40 mg PO BEDTIME [facility] Last Admin: 09/21/23 20:36 Dose: 40 mg Clonidine HCl (Clonidine Hcl 0.1 Mg Tablet) 0.1 mg PO BEDTIME PRN; Protocol PRN Reason: mild anxiety Hydroxyzine HCl (Hydroxyzine Hcl 25 Mg Tablet) 25 mg PO Q6H PRN PRN Reason: Anxiety Last Admin: 09/20/23 17:23 Dose: 25 mg Ibuprofen (Ibuprofen 600 Mg Tablet) 600 mg PO Q6H PRN PRN Reason: tooth pain Lamotrigine (Lamotrigine 100 Mg Tablet) 100 mg PO DAILY [facility] Last Admin: 09/22/23 07:50 Dose: 100 mg Magnesium Hydroxide (Milk Of Magnesia 30 Ml Oral.Susp) 30 ml PO DAILY PRN PRN Reason: Constipation Nicotine Polacrilex (Nicotine Polacrilex 2 Mg Gum) 4 mg BUCCAL Q2H PRN PRN Reason: Nicotine Cravings Non-Formulary Medication (Testosterone) 60 mg IM DIRECTED [facility] Patient Own ( Norethindrone Acetate 5 Mg Tablet) 10 mg PO DAILY [facility] Last Admin: 09/22/23 07:50 Dose: 10 mg Olanzapine (Olanzapine 5 Mg Tablet) 5 mg PO TID PRN PRN Reason: agitation Last Admin: 09/22/23 09:07 Dose: 5 mg Prazosin HCl (Prazosin Hcl 1 Mg Capsule) 1 mg PO BEDTIME LEESA; Protocol Last Admin: 09/21/23 20:36 Dose: 1 mg Trazodone HCl (Trazodone Hcl 50 Mg Tablet) 50 mg PO BEDTIME MRX1 PRN PRN Reason: Insomnia Last Admin: 09/20/23 21:21 Dose: 50 mg Venlafaxine HCl (Venlafaxine Hcl Er 75 Mg Cap.Er.24h) 75 mg PO DAILY [facility] Last Admin: 09/22/23 07:50 Dose: 75 mg Allergies Allergies Allergy/AdvReac Type Severity Reaction Status Date / Time latex Allergy Rash Verified 09/20/23 12:17 Assessment & Plan Assessment & Plan (1) MDD (major depressive disorder): Status: Acute Code(s): F32.9 - Major depressive disorder, single episode, unspecified (2) PTSD (post-traumatic stress disorder): Status: Acute Code(s): F43.10 - Post-traumatic stress disorder, unspecified Plan Regarding treatment, agreed we will restart medications they were discharged on. Regarding stressors, patient acknowledges that hospital will not be able to changes, but might be able to help provide support around them or maximize patient's ability to manage them from a mental state perspective. 09/22/23: increase lamictal to 150mg and prn olanzpaine to 10mg - it helps sometimes but not at others. Reason for continued inpatient stay Substantial Risk for: harm to self Time Spent With Patient Time: Total time managing care of this patient today ____ minutes.
[2023-09-22] MEDS: Ibuprofen 600 MG TABLET PO ×2 (11:00→17:33)
[2023-09-22 20:20] VITALS: BP 126/67
[2023-09-22] MEDS: Atorvastatin Calcium 40 MG TABLET PO (20:20)
[2023-09-22] MEDS: cloNIDine HCL 0.1 MG TABLET PO (20:20)
[2023-09-22 20:21] VITALS: BP 126/67; PULSE 80; RESP 20; TEMP 37.7; O2SAT 96
[2023-09-22] MEDS: Prazosin HCL 1 MG CAPSULE PO (20:21)
[2023-09-22] MEDS: OLANZapine 10 MG TABLET PO (20:21)
[2023-09-22] MEDS: traZODone HCL 50 MG TABLET PO (20:21)
[2023-09-23 08:00] VITALS: BP 144/70; PULSE 86; RESP 16; TEMP 37.1; O2SAT 97
[2023-09-23] MEDS: OLANZapine 10 MG TABLET PO ×2 (08:26→17:42)
[2023-09-23] MEDS: Venlafaxine HCl ER 75 MG CAP.ER.24H PO (08:26)
[2023-09-23] MEDS: lamoTRIgine 25 MG TABLET 150 MG PO (08:26)
--- NOTE | 2023-09-23 09:47 | P.PNPSI_ITS ---
Subjective Subjective Date of Service: 09/23/23 Reason For Visit: depression Interim History: met with patient; discussed with team intermittently dysregulated when dealing with milue stress pt reports much depression and overall feeling overwhelmed with life, saying everything triggers him. Pt says he feels so overwhelmed he wishes he were ; pt thinks it unfair that euthenasia is not allowed for mental health. During conversation pt got dysregulated and wanted to bang his head, yelling you're not listening to me... Pt felt he needed a prn, which he received, or would end up in restraints, the urge to bang his head was so strong. Mental Status Exam Mental Status Exam Narrative: Pt is alert and oriented; behavior is emotionally reactive, irritable and anxious, also cooperative, patient is not in distress; dressed in casual attire with unkempt hair but adequate hygiene; mood is described as overwhelmed and affect congruent, anxious, labile; eye contact appropriate; Speech is normal rate, volume and prosody and not pressured; both psychomotor agitation/retardation present; thought process is organized and goal directed; Thought content is on overwhelming parts of life tx; otherwise pertinent to relevant topics and without any delusional content, paranoid ideations or grandiosity; Positive SI; no HI. There is no evidence of perceptual disturbance. Patients insight and judgment impaired. Diagnostics Vital Signs (24Hr): Vital Signs - 24 hr 09/22/23 20:20 09/22/23 20:21 09/22/23 20:21 Temperature 99.8 F Pulse Rate 80 Respiratory Rate 20 Blood Pressure 126/67 126/67 Pulse Oximetry 96 Oxygen Delivery Method Room Air BMI result Body Mass Index 28.3 Labs 09/20/23 14:12 09/20/23 14:12 Medications Medications Current Medications Acetaminophen (Acetaminophen 325 Mg Tablet) 650 mg PO Q6H PRN PRN Reason: Headache/Pain Mild Scale (1-3) Last Admin: 09/22/23 13:50 Dose: 650 mg Al Hydroxide/Mg Hydroxide (Magnesium Hydrox/Alum Hydrox 30 Ml Oral.Susp) 30 ml PO Q6H PRN PRN Reason: Heartburn/Nausea Atorvastatin Calcium (Atorvastatin Calcium 40 Mg Tablet) 40 mg PO BEDTIME [facility] Last Admin: 09/22/23 20:20 Dose: 40 mg Clonidine HCl (Clonidine Hcl 0.1 Mg Tablet) 0.1 mg PO BEDTIME PRN; Protocol PRN Reason: mild anxiety Last Admin: 09/22/23 20:20 Dose: 0.1 mg Hydroxyzine HCl (Hydroxyzine Hcl 25 Mg Tablet) 25 mg PO Q6H PRN PRN Reason: Anxiety Last Admin: 09/20/23 17:23 Dose: 25 mg Ibuprofen (Ibuprofen 600 Mg Tablet) 600 mg PO Q6H PRN PRN Reason: tooth pain Last Admin: 09/22/23 17:33 Dose: 600 mg Lamotrigine (Lamotrigine 25 Mg Tablet) 150 mg PO DAILY [facility] Last Admin: 09/23/23 08:26 Dose: 150 mg Magnesium Hydroxide (Milk Of Magnesia 30 Ml Oral.Susp) 30 ml PO DAILY PRN PRN Reason: Constipation Nicotine Polacrilex (Nicotine Polacrilex 2 Mg Gum) 4 mg BUCCAL Q2H PRN PRN Reason: Nicotine Cravings Non-Formulary Medication (Testosterone) 60 mg IM DIRECTED [facility] Patient Own ( Norethindrone Acetate 5 Mg Tablet) 10 mg PO DAILY [facility] Last Admin: 09/23/23 08:27 Dose: 10 mg Olanzapine (Olanzapine 10 Mg Tablet) 10 mg PO TID PRN PRN Reason: agitation Last Admin: 09/23/23 08:26 Dose: 10 mg Prazosin HCl (Prazosin Hcl 1 Mg Capsule) 1 mg PO BEDTIME [facility]; Protocol Last Admin: 09/22/23 20:21 Dose: 1 mg Trazodone HCl (Trazodone Hcl 50 Mg Tablet) 50 mg PO BEDTIME MRX1 PRN PRN Reason: Insomnia Last Admin: 09/22/23 20:21 Dose: 50 mg Venlafaxine HCl (Venlafaxine Hcl Er 75 Mg Cap.Er.24h) 75 mg PO DAILY [facility] Last Admin: 09/23/23 08:26 Dose: 75 mg Allergies Allergies Allergy/AdvReac Type Severity Reaction Status Date / Time latex Allergy Rash Verified 09/20/23 12:17 Assessment & Plan Assessment & Plan (1) MDD (major depressive disorder): Status: Acute Code(s): F32.9 - Major depressive disorder, single episode, unspecified (2) PTSD (post-traumatic stress disorder): Status: Acute Code(s): F43.10 - Post-traumatic stress disorder, unspecified Plan Regarding treatment, agreed we will restart medications they were discharged on. Regarding stressors, patient acknowledges that hospital will not be able to changes, but might be able to help provide support around them or maximize patient's ability to manage them from a mental state perspective. Hospital course: 09/22/23: increase lamictal to 150mg and prn olanzpaine to 10mg - it helps sometimes but not at others. 09/21 continues to be overwhelmed with anxiety, irritability. Pt might improve with scheduled mood stabilizer or low dose antipsychotic -try risperdal 0.5 mg bid Patient educated on: diagnosis, medication risk/benefits and therapeutic strategies Informed Consent: understands Reason for continued inpatient stay Substantial Risk for: harm to self Time Spent With Patient Time: Total time managing care of this patient today ____ minutes.
[2023-09-23] MEDS: Acetaminophen 325 MG TABLET 650 MG PO (09:58)
[2023-09-23] MEDS: Ibuprofen 600 MG TABLET PO (16:24)
[2023-09-23] MEDS: hydrOXYzine HCL 25 MG TABLET PO (17:42)
[2023-09-23 20:00] VITALS: BP 137/67; PULSE 96; RESP 18; TEMP 37.6; O2SAT 97
[2023-09-23] MEDS: Prazosin HCL 1 MG CAPSULE PO (20:44)
[2023-09-23] MEDS: clonazePAM 0.5 MG TABLET PO (20:45)
[2023-09-23] MEDS: OLANZapine 5 MG TABLET PO (20:45)
[2023-09-23] MEDS: Atorvastatin Calcium 40 MG TABLET PO (20:45)
[2023-09-24] MEDS: Acetaminophen 325 MG TABLET 650 MG PO ×2 (07:58→14:59)
[2023-09-24 08:00] VITALS: BP 112/56; PULSE 87; RESP 17; TEMP 36.9; O2SAT 97
[2023-09-24] MEDS: risperiDONE 0.5 MG TABLET PO ×2 (08:31→21:25)
[2023-09-24] MEDS: lamoTRIgine 25 MG TABLET 150 MG PO (08:32)
[2023-09-24] MEDS: Venlafaxine HCl ER 75 MG CAP.ER.24H PO (08:32)
[2023-09-24] MEDS: Ibuprofen 600 MG TABLET PO ×2 (08:38→17:26)
--- NOTE | 2023-09-24 09:14 | HO.PSYCHPN ---
Subjective Subjective Date of Service: 09/24/23 Reason For Visit: depression Interim History: Met with patient; discussed with team Patient feeling better today and says he has in a better space. Discussed addition of Risperdal and reviewed risks/side effects which patient agrees to take, saying he thinks it has a good idea if it can help be stabilizing. Patient discussed that when he is feeling overwhelmed he does not do great with further discussion which accounts for yesterday's dysregulated interaction with writer editor; he says that it seems to be more resolved now and he got a good night's sleep. Patient is without any SI and said he thinks he would like to go home soon. He said he starting to realize that he has been able to accomplish much on his own and that he will just need to figure out how to get through this challenging time. Regarding housing he said probably go back and stay with his family. Discussed medication management further inpatient feels good about leaving rest of his medications as are. Mental Status Exam Mental Status Exam Narrative: Pt is alert and oriented; behavior cooperative, friendly and calm; patient is not in distress; dressed in casual attire, glasses, facial hair, adequate hygiene; mood is described as little better and affect congruent, brighter, more calm; eye contact appropriate; Speech is normal rate, volume and prosody and not pressured; no psychomotor agitation/retardation present; thought process is organized and goal directed; Thought content is on trying to be more hopeful; tx; otherwise pertinent to relevant topics and without any delusional content, paranoid ideations or grandiosity; no SI; no HI. There is no evidence of perceptual disturbance. Patients insight and judgment fair. Diagnostics Vital Signs (24Hr): Vital Signs - 24 hr 09/23/23 20:00 09/24/23 08:00 Temperature 99.6 F 98.5 F Pulse Rate 96 87 Respiratory Rate 18 17 Blood Pressure 137/67 112/56 L Pulse Oximetry 97 97 Oxygen Delivery Method Room Air Room Air BMI result Body Mass Index 28.3 Labs 09/20/23 14:12 09/20/23 14:12 Medications Medications Current Medications Acetaminophen (Acetaminophen 325 Mg Tablet) 650 mg PO Q6H PRN PRN Reason: Headache/Pain Mild Scale (1-3) Last Admin: 09/24/23 07:58 Dose: 650 mg Al Hydroxide/Mg Hydroxide (Magnesium Hydrox/Alum Hydrox 30 Ml Oral.Susp) 30 ml PO Q6H PRN PRN Reason: Heartburn/Nausea Atorvastatin Calcium (Atorvastatin Calcium 40 Mg Tablet) 40 mg PO BEDTIME [facility] Last Admin: 09/23/23 20:45 Dose: 40 mg Clonidine HCl (Clonidine Hcl 0.1 Mg Tablet) 0.1 mg PO Q4H PRN; Protocol PRN Reason: mild anxiety/insomnia Hydroxyzine HCl (Hydroxyzine Hcl 25 Mg Tablet) 25 mg PO Q6H PRN PRN Reason: Anxiety Last Admin: 09/23/23 17:42 Dose: 25 mg Ibuprofen (Ibuprofen 600 Mg Tablet) 600 mg PO Q6H PRN PRN Reason: tooth pain Last Admin: 09/24/23 08:38 Dose: 600 mg Lamotrigine (Lamotrigine 25 Mg Tablet) 150 mg PO DAILY [facility] Last Admin: 09/24/23 08:32 Dose: 150 mg Magnesium Hydroxide (Milk Of Magnesia 30 Ml Oral.Susp) 30 ml PO DAILY PRN PRN Reason: Constipation Nicotine Polacrilex (Nicotine Polacrilex 2 Mg Gum) 4 mg BUCCAL Q2H PRN PRN Reason: Nicotine Cravings Non-Formulary Medication (Testosterone) 60 mg IM DIRECTED [facility] Patient Own ( Norethindrone Acetate 5 Mg Tablet) 10 mg PO DAILY [facility] Last Admin: 09/24/23 08:32 Dose: 10 mg Olanzapine (Olanzapine 10 Mg Tablet) 10 mg PO TID PRN PRN Reason: agitation Last Admin: 09/23/23 17:42 Dose: 10 mg Prazosin HCl (Prazosin Hcl 1 Mg Capsule) 1 mg PO BEDTIME [facility]; Protocol Last Admin: 09/23/23 20:44 Dose: 1 mg Risperidone (Risperidone 0.5 Mg Tablet) 0.5 mg PO BID [facility] Last Admin: 09/24/23 08:31 Dose: 0.5 mg Trazodone HCl (Trazodone Hcl 50 Mg Tablet) 50 mg PO BEDTIME MRX1 PRN PRN Reason: Insomnia Last Admin: 09/22/23 20:21 Dose: 50 mg Venlafaxine HCl (Venlafaxine Hcl Er 75 Mg Cap.Er.24h) 75 mg PO DAILY [facility] Last Admin: 09/24/23 08:32 Dose: 75 mg Allergies Allergies Allergy/AdvReac Type Severity Reaction Status Date / Time latex Allergy Rash Verified 09/20/23 12:17 Assessment & Plan Assessment & Plan (1) MDD (major depressive disorder): Status: Acute Code(s): F32.9 - Major depressive disorder, single episode, unspecified (2) PTSD (post-traumatic stress disorder): Status: Acute Code(s): F43.10 - Post-traumatic stress disorder, unspecified Plan Regarding treatment, agreed we will restart medications they were discharged on. Regarding stressors, patient acknowledges that hospital will not be able to changes, but might be able to help provide support around them or maximize patient's ability to manage them from a mental state perspective. Hospital course: 09/22/23: increase lamictal to 150mg and prn olanzpaine to 10mg - it helps sometimes but not at others. 09/22 continues to be overwhelmed with anxiety, irritability. Pt might improve with scheduled mood stabilizer or low dose antipsychotic -try risperdal 0.5 mg bid 09/23Patient feeling better today and says he has in a better space. Discussed addition of Risperdal and reviewed risks/side effects which patient agrees to take, saying he thinks it has a good idea if it can help be stabilizing. Patient discussed that when he is feeling overwhelmed he does not do great with further discussion which accounts for yesterday's dysregulated interaction with writer editor; he says that it seems to be more resolved now and he got a good night's sleep. Patient is without any SI and said he thinks he would like to go home soon. He said he starting to realize that he has been able to accomplish much on his own and that he will just need to figure out how to get through this challenging time. Regarding housing he said probably go back and stay with his family. Plan: CV Q 15 minutes checks Continue Risperdal 0.5 mg b.i.d. Continue Lamictal 150 mg daily Continue Effexor ER 75 mg daily Continue PRNs Patient educated on: diagnosis, medication risk/benefits and therapeutic strategies Informed Consent: understands Reason for continued inpatient stay Substantial Risk for: stable for discharge and rapid decompensation Time Spent With Patient Time: Total time managing care of this patient today ____ minutes.
[2023-09-24 20:00] VITALS: BP 133/63; PULSE 92; RESP 17; TEMP 36.6; O2SAT 97
[2023-09-24] MEDS: Prazosin HCL 1 MG CAPSULE PO (21:25)
[2023-09-24] MEDS: Atorvastatin Calcium 40 MG TABLET PO (21:25)
[2023-09-24] MEDS: hydrOXYzine HCL 25 MG TABLET PO (21:27)
[2023-09-24] MEDS: traZODone HCL 50 MG TABLET PO (21:27)
[2023-09-24] MEDS: cloNIDine HCL 0.1 MG TABLET PO (21:27)
[2023-09-25] MEDS: Acetaminophen 325 MG TABLET 650 MG PO ×2 (06:27→17:08)
[2023-09-25 08:00] VITALS: BP 114/71; PULSE 87; RESP 18; TEMP 37.1; O2SAT 98
[2023-09-25] MEDS: Venlafaxine HCl ER 75 MG CAP.ER.24H PO (08:28)
[2023-09-25] MEDS: lamoTRIgine 25 MG TABLET 150 MG PO (08:28)
[2023-09-25] MEDS: risperiDONE 0.5 MG TABLET PO ×2 (08:28→21:08)
--- NOTE | 2023-09-25 09:34 | HO.PSYCHPN ---
Subjective Subjective Date of Service: 09/25/23 Reason For Visit: depression Interim History: met with patient; discussed with team pt feeling overall better; trouble sleeping due to vivid dreams he thinks due to trazodone. Discussed options and pt wants to remain with trazodone available since it helps; he agrees however to add clonidine at bedtime to see if it's enough. Otherwise, better tolerating increased acquity in milue. Mental Status Exam Mental Status Exam Narrative: Pt is alert and oriented; behavior cooperative, friendly and calm; patient is not in distress; dressed in casual attire, glasses, facial hair, adequate hygiene; mood is described as ok and affect congruent, brighter, more calm; eye contact appropriate; Speech is normal rate, volume and prosody and not pressured; no psychomotor agitation/retardation present; thought process is organized and goal directed; Thought content is on trying to be more hopeful; tx; otherwise pertinent to relevant topics and without any delusional content, paranoid ideations or grandiosity; no SI; no HI. There is no evidence of perceptual disturbance. Patients insight and judgment fair. Diagnostics Vital Signs (24Hr): Vital Signs - 24 hr 09/24/23 20:00 09/25/23 08:00 Temperature 97.9 F 98.7 F Pulse Rate 92 87 Respiratory Rate 17 18 Blood Pressure 133/63 114/71 Pulse Oximetry 97 98 Oxygen Delivery Method Room Air Room Air BMI result Body Mass Index 28.3 Labs 09/20/23 14:12 09/20/23 14:12 Medications Medications Current Medications Acetaminophen (Acetaminophen 325 Mg Tablet) 650 mg PO Q6H PRN PRN Reason: Headache/Pain Mild Scale (1-3) Last Admin: 09/25/23 06:27 Dose: 650 mg Al Hydroxide/Mg Hydroxide (Magnesium Hydrox/Alum Hydrox 30 Ml Oral.Susp) 30 ml PO Q6H PRN PRN Reason: Heartburn/Nausea Atorvastatin Calcium (Atorvastatin Calcium 40 Mg Tablet) 40 mg PO BEDTIME [facility] Last Admin: 09/24/23 21:25 Dose: 40 mg Clonidine HCl (Clonidine Hcl 0.1 Mg Tablet) 0.1 mg PO Q4H PRN; Protocol PRN Reason: mild anxiety/insomnia Last Admin: 09/24/23 21:27 Dose: 0.1 mg Hydroxyzine HCl (Hydroxyzine Hcl 25 Mg Tablet) 25 mg PO Q6H PRN PRN Reason: Anxiety Last Admin: 09/24/23 21:27 Dose: 25 mg Ibuprofen (Ibuprofen 600 Mg Tablet) 600 mg PO Q6H PRN PRN Reason: tooth pain Last Admin: 09/24/23 17:26 Dose: 600 mg Lamotrigine (Lamotrigine 25 Mg Tablet) 150 mg PO DAILY [facility] Last Admin: 09/25/23 08:28 Dose: 150 mg Magnesium Hydroxide (Milk Of Magnesia 30 Ml Oral.Susp) 30 ml PO DAILY PRN PRN Reason: Constipation Nicotine Polacrilex (Nicotine Polacrilex 2 Mg Gum) 4 mg BUCCAL Q2H PRN PRN Reason: Nicotine Cravings Non-Formulary Medication (Testosterone) 60 mg IM DIRECTED [facility] Patient Own ( Norethindrone Acetate 5 Mg Tablet) 10 mg PO DAILY [facility] Last Admin: 09/25/23 08:28 Dose: 10 mg Olanzapine (Olanzapine 10 Mg Tablet) 10 mg PO TID PRN PRN Reason: agitation Last Admin: 09/23/23 17:42 Dose: 10 mg Prazosin HCl (Prazosin Hcl 1 Mg Capsule) 1 mg PO BEDTIME [facility]; Protocol Last Admin: 09/24/23 21:25 Dose: 1 mg Risperidone (Risperidone 0.5 Mg Tablet) 0.5 mg PO BID [facility] Last Admin: 09/25/23 08:28 Dose: 0.5 mg Trazodone HCl (Trazodone Hcl 50 Mg Tablet) 50 mg PO BEDTIME MRX1 PRN PRN Reason: Insomnia Last Admin: 09/24/23 21:27 Dose: 50 mg Venlafaxine HCl (Venlafaxine Hcl Er 75 Mg Cap.Er.24h) 75 mg PO DAILY [facility] Last Admin: 09/25/23 08:28 Dose: 75 mg Allergies Allergies Allergy/AdvReac Type Severity Reaction Status Date / Time latex Allergy Rash Verified 09/20/23 12:17 Assessment & Plan Assessment & Plan (1) MDD (major depressive disorder): Status: Acute Code(s): F32.9 - Major depressive disorder, single episode, unspecified (2) PTSD (post-traumatic stress disorder): Status: Acute Code(s): F43.10 - Post-traumatic stress disorder, unspecified Plan Regarding treatment, agreed we will restart medications they were discharged on. Regarding stressors, patient acknowledges that hospital will not be able to changes, but might be able to help provide support around them or maximize patient's ability to manage them from a mental state perspective. Hospital course: 09/22/23: increase lamictal to 150mg and prn olanzpaine to 10mg - it helps sometimes but not at others. 09/22 continues to be overwhelmed with anxiety, irritability. Pt might improve with scheduled mood stabilizer or low dose antipsychotic -try risperdal 0.5 mg bid 09/23Patient feeling better today and says he has in a better space. Discussed addition of Risperdal and reviewed risks/side effects which patient agrees to take, saying he thinks it has a good idea if it can help be stabilizing. Patient discussed that when he is feeling overwhelmed he does not do great with further discussion which accounts for yesterday's dysregulated interaction with senior writer; he says that it seems to be more resolved now and he got a good night's sleep. Patient is without any SI and said he thinks he would like to go home soon. He said he starting to realize that he has been able to accomplish much on his own and that he will just need to figure out how to get through this challenging time. Regarding housing he said probably go back and stay with his family. 09/24 remains doing better; less reactive; adding clindine to qhs to see if can replace need for trazodone (causing vidid dreams) Plan: CV Q 15 minutes checks Continue Risperdal 0.5 mg b.i.d. Continue Lamictal 150 mg daily Continue Effexor ER 75 mg daily clonidine 0.1mg qhs to see if can help w/ insomnia Continue PRNs Patient educated on: diagnosis and medication risk/benefits Informed Consent: understands Reason for continued inpatient stay Substantial Risk for: stable for discharge Time Spent With Patient Time: Total time managing care of this patient today ____ minutes.
[2023-09-25] MEDS: Ibuprofen 600 MG TABLET PO (11:37)
[2023-09-25] MEDS: OLANZapine 10 MG TABLET PO (17:08)
[2023-09-25 20:00] VITALS: BP 129/65; PULSE 85; RESP 15; TEMP 36.9; O2SAT 98
[2023-09-25 21:06] VITALS: BP 129/65
[2023-09-25] MEDS: cloNIDine HCL 0.1 MG TABLET PO (21:06)
[2023-09-25 21:07] VITALS: BP 129/65
[2023-09-25] MEDS: Prazosin HCL 1 MG CAPSULE PO (21:07)
[2023-09-25] MEDS: Atorvastatin Calcium 40 MG TABLET PO (21:08)
[2023-09-25] MEDS: traZODone HCL 50 MG TABLET PO (21:09)
--- NOTE | 2023-09-26 05:19 | PC.NURSE ---
At approximately 1930 on 09/24, this patient had a verbal altercation with Star during a group. Apparently Star misgendered and insulted this patient. This patient had a loud outburst and was asked to leave the group room. Patient was compliant. Geraldo has had issues in the past with difficulty in self regulation. However, this bid writer noted that after this verbal altercation, Geraldo was able to self regulate more quickly than in the past (within approximately 5 minutes,) and without PRN medication.
[2023-09-26 08:00] VITALS: BP 120/63; PULSE 94; RESP 17; TEMP 36; O2SAT 97
[2023-09-26] MEDS: Venlafaxine HCl ER 75 MG CAP.ER.24H PO (08:29)
[2023-09-26] MEDS: lamoTRIgine 25 MG TABLET 150 MG PO (08:29)
[2023-09-26] MEDS: risperiDONE 0.5 MG TABLET PO ×2 (08:29→20:42)
--- NOTE | 2023-09-26 09:07 | HO.PSYCHPN ---
Subjective Subjective Date of Service: 09/26/23 Reason For Visit: depression Interim History: met with pt; discussed with team pt reports doing well; feels that risperdal is helping him be more calm and less emotionally reactive; feeling more in control. Pt mood improved and he'd like to dc tomorrow as planned. Mental Status Exam Mental Status Exam Narrative: Pt is alert and oriented; behavior cooperative, friendly and calm; patient is not in distress; dressed in casual attire, glasses, facial hair, adequate hygiene; mood is described as ok and affect congruent, brighter, more calm; eye contact appropriate; Speech is normal rate, volume and prosody and not pressured; no psychomotor agitation/retardation present; thought process is organized and goal directed; Thought content is on trying to be more hopeful; tx; otherwise pertinent to relevant topics and without any delusional content, paranoid ideations or grandiosity; no SI; no HI. There is no evidence of perceptual disturbance. Patients insight and judgment fair. Diagnostics Vital Signs (24Hr): Vital Signs - 24 hr 09/25/23 20:00 09/25/23 21:06 09/25/23 21:07 Temperature 98.4 F Pulse Rate 85 Respiratory Rate 15 Blood Pressure 129/65 129/65 129/65 Pulse Oximetry 98 Oxygen Delivery Method Room Air 09/26/23 08:00 Temperature 96.8 F Pulse Rate 94 Respiratory Rate 17 Blood Pressure 120/63 Pulse Oximetry 97 Oxygen Delivery Method Room Air BMI result Body Mass Index 28.3 Labs 09/20/23 14:12 09/20/23 14:12 Medications Medications Current Medications Acetaminophen (Acetaminophen 325 Mg Tablet) 650 mg PO Q6H PRN PRN Reason: Headache/Pain Mild Scale (1-3) Last Admin: 09/25/23 17:08 Dose: 650 mg Al Hydroxide/Mg Hydroxide (Magnesium Hydrox/Alum Hydrox 30 Ml Oral.Susp) 30 ml PO Q6H PRN PRN Reason: Heartburn/Nausea Atorvastatin Calcium (Atorvastatin Calcium 40 Mg Tablet) 40 mg PO BEDTIME [facility] Last Admin: 09/25/23 21:08 Dose: 40 mg Clonidine HCl (Clonidine Hcl 0.1 Mg Tablet) 0.1 mg PO Q4H PRN; Protocol PRN Reason: mild anxiety/insomnia Last Admin: 09/24/23 21:27 Dose: 0.1 mg Clonidine HCl (Clonidine Hcl 0.1 Mg Tablet) 0.1 mg PO BEDTIME [facility]; Protocol Last Admin: 09/25/23 21:06 Dose: 0.1 mg Hydroxyzine HCl (Hydroxyzine Hcl 25 Mg Tablet) 25 mg PO Q6H PRN PRN Reason: Anxiety Last Admin: 09/24/23 21:27 Dose: 25 mg Ibuprofen (Ibuprofen 600 Mg Tablet) 600 mg PO Q6H PRN PRN Reason: tooth pain Last Admin: 09/25/23 11:37 Dose: 600 mg Lamotrigine (Lamotrigine 25 Mg Tablet) 150 mg PO DAILY [facility] Last Admin: 09/26/23 08:29 Dose: 150 mg Magnesium Hydroxide (Milk Of Magnesia 30 Ml Oral.Susp) 30 ml PO DAILY PRN PRN Reason: Constipation Nicotine Polacrilex (Nicotine Polacrilex 2 Mg Gum) 4 mg BUCCAL Q2H PRN PRN Reason: Nicotine Cravings Non-Formulary Medication (Testosterone) 60 mg IM DIRECTED [facility] Patient Own ( Norethindrone Acetate 5 Mg Tablet) 10 mg PO DAILY [facility] Last Admin: 09/26/23 08:31 Dose: 10 mg Olanzapine (Olanzapine 10 Mg Tablet) 10 mg PO TID PRN PRN Reason: agitation Last Admin: 09/25/23 17:08 Dose: 10 mg Prazosin HCl (Prazosin Hcl 1 Mg Capsule) 1 mg PO BEDTIME [facility]; Protocol Last Admin: 09/25/23 21:07 Dose: 1 mg Risperidone (Risperidone 0.5 Mg Tablet) 0.5 mg PO BID [facility] Last Admin: 09/26/23 08:29 Dose: 0.5 mg Trazodone HCl (Trazodone Hcl 50 Mg Tablet) 50 mg PO BEDTIME MRX1 PRN PRN Reason: Insomnia Last Admin: 09/25/23 21:09 Dose: 50 mg Venlafaxine HCl (Venlafaxine Hcl Er 75 Mg Cap.Er.24h) 75 mg PO DAILY [facility] Last Admin: 09/26/23 08:29 Dose: 75 mg Allergies Allergies Allergy/AdvReac Type Severity Reaction Status Date / Time latex Allergy Rash Verified 09/20/23 12:17 Assessment & Plan Assessment & Plan (1) MDD (major depressive disorder): Status: Acute Code(s): F32.9 - Major depressive disorder, single episode, unspecified (2) PTSD (post-traumatic stress disorder): Status: Acute Code(s): F43.10 - Post-traumatic stress disorder, unspecified Plan Regarding treatment, agreed we will restart medications they were discharged on. Regarding stressors, patient acknowledges that hospital will not be able to changes, but might be able to help provide support around them or maximize patient's ability to manage them from a mental state perspective. Hospital course: 09/22/23: increase lamictal to 150mg and prn olanzpaine to 10mg - it helps sometimes but not at others. 09/22 continues to be overwhelmed with anxiety, irritability. Pt might improve with scheduled mood stabilizer or low dose antipsychotic -try risperdal 0.5 mg bid 09/23Patient feeling better today and says he has in a better space. Discussed addition of Risperdal and reviewed risks/side effects which patient agrees to take, saying he thinks it has a good idea if it can help be stabilizing. Patient discussed that when he is feeling overwhelmed he does not do great with further discussion which accounts for yesterday's dysregulated interaction with designer/writer; he says that it seems to be more resolved now and he got a good night's sleep. Patient is without any SI and said he thinks he would like to go home soon. He said he starting to realize that he has been able to accomplish much on his own and that he will just need to figure out how to get through this challenging time. Regarding housing he said probably go back and stay with his family. 09/24 remains doing better; less reactive; adding clonidine to qhs to see if can replace need for trazodone (causing vidid dreams) 09/25 pt feels he's doing better, more calm w/ risperdal, less emotionally reactive; more in control of himself. wants to dc tomorrow; mood improved, no SI, future oriented. -pt not in imminent risk for harm to self o others and appropriate to continue tx in the community. Plan: CV Q 15 minutes checks Continue Risperdal 0.5 mg b.i.d. Continue Lamictal 150 mg daily Continue Effexor ER 75 mg daily clonidine 0.1mg qhs to see if can help w/ insomnia Continue PRNs Patient educated on: diagnosis and medication risk/benefits Informed Consent: understands Reason for continued inpatient stay Substantial Risk for: stable for discharge Time Spent With Patient Time: Total time managing care of this patient today ____ minutes.
[2023-09-26] MEDS: Acetaminophen 325 MG TABLET 650 MG PO (11:36)
[2023-09-26] MEDS: OLANZapine 10 MG TABLET PO (11:37)
[2023-09-26 17:41] VITALS: BMI 29.0
[2023-09-26 20:30] VITALS: BP 129/62; PULSE 84; RESP 16; TEMP 36.7; O2SAT 97
[2023-09-26] MEDS: Prazosin HCL 1 MG CAPSULE PO (20:42)
[2023-09-26] MEDS: traZODone HCL 50 MG TABLET PO ×2 (20:42→21:56)
[2023-09-26] MEDS: hydrOXYzine HCL 25 MG TABLET PO (20:42)
[2023-09-26] MEDS: cloNIDine HCL 0.1 MG TABLET PO (20:42)
[2023-09-26] MEDS: Atorvastatin Calcium 40 MG TABLET PO (20:42)
[2023-09-27 08:00] VITALS: BP 130/89; PULSE 84; RESP 18; TEMP 36.8; O2SAT 97
--- NOTE | 2023-09-27 08:30 | PM.PSYDC ---
DS: Providers Provider Date of Service: 09/27/23 Date of admission: 09/20/23 15:45 Date of discharge: 10/23/23 Primary care physician: Teo Turpin MD Attending physician on admission: Servando Rivas Attending physician on discharge: Jeffrey Britton DS: Diagnosis Discharge Diagnosis (1) MDD (major depressive disorder): Status: Acute (2) PTSD (post-traumatic stress disorder): Status: Acute DS: Medications Discharge Medications Home Medications: Home Medications ?Medication ?Instructions ?Recorded ?Confirmed testosterone 60 mg IM DIRECTED 09/10/23 09/20/23 Previous Rx's ?Medication ?Instructions ?Recorded atorvastatin 40 mg tablet 40 mg PO DAILY 30 days #30 tabs 09/26/23 clonidine HCl 0.1 mg tablet 0.1 mg PO Q4H PRN anxiety/insomnia 09/26/23 30 days #60 tabs hydroxyzine HCl 25 mg tablet 25 mg PO Q6H PRN Anxiety 30 days 09/26/23 #60 tabs lamotrigine 150 mg tablet 150 mg PO DAILY 30 days #30 tabs 09/26/23 norethindrone acetate 5 mg tablet 10 mg (2 x 5 mg) PO DAILY 30 days 09/26/23 #60 tabs olanzapine 10 mg tablet 10 mg PO TID PRN agitation 30 days 09/26/23 #30 tabs prazosin 1 mg capsule 1 mg PO BEDTIME 30 days #30 caps 09/26/23 risperidone 0.5 mg tablet 0.5 mg PO BID 30 days #60 tabs 09/26/23 trazodone 50 mg tablet 50 mg PO BEDTIME PRN Insomnia 30 09/26/23 days #30 tabs venlafaxine 75 mg capsule,extended 75 mg PO DAILY 30 days #30 caps 09/26/23 release 24 hr Mental Status Exam Mental Status Exam Narrative: Pt is alert and oriented; behavior cooperative, friendly and calm; patient is not in distress; dressed in casual attire, glasses, facial hair, adequate hygiene; mood is described as ok and affect congruent, brighter, more calm; eye contact appropriate; Speech is normal rate, volume and prosody and not pressured; no psychomotor agitation/retardation present; thought process is organized and goal directed; Thought content is on trying to be more hopeful; tx; otherwise pertinent to relevant topics and without any delusional content, paranoid ideations or grandiosity; no SI; no HI. There is no evidence of perceptual disturbance. Patients insight and judgment fair. Data Data Completed and Pending Completed studies during hospitalization [Text1]: 09/20/23 09/20/23 14:12 16:02 WBC 11.2 H RBC 4.56 L Hgb 13.6 L Hct 39.9 L MCV 87.5 MCH 29.8 MCHC 34.1 RDW 12.2 Plt Count 215 MPV 9.2 L Immature Gran % (Auto) 0.2 Neut % (Auto) 53.7 Lymph % (Auto) 33.7 [place] % (Auto) 7.7 Eos % (Auto) 4.5 H Baso % (Auto) 0.2 Lymph # (Auto) 3.8 [place] # (Auto) 0.9 Eos # (Auto) 0.5 H Baso # (Auto) 0.0 Abs Immat Gran (auto) 0.02 Absolute Neuts (auto) 6.0 Absolute Nucleated RBC 0.000 Nucleated RBC % (auto) 0.0 Sodium 140 Potassium 4.4 Chloride 110 H Carbon Dioxide 23 Anion Gap 11 L BUN 14 Creatinine 0.68 Estim Creat Clear Calc 163.2 Estimated GFR > 60 Random Glucose 84 Calcium 9.2 Total Bilirubin 0.3 AST 17 ALT 22 Alkaline Phosphatase 53 Total Protein 6.1 L Albumin 3.8 Urine Color Yellow Urine Appearance Cloudy Urine pH 6.5 Ur Specific [place] >= 1.030 H Urine Protein Trace Urine Glucose (UA) Negative Urine Ketones Negative Urine Blood Negative Urine Nitrite Negative Ur Leukocyte Esterase Small (1+) H Urine RBC 0-2 Urine WBC 0-5 Ur Squamous Epith Cells 3-5 Urine Bacteria Trace Hyaline Casts 0-2 Urine Opiates Screen Not Detected Ur Buprenorphine Scrn Not Detected Ur Oxycodone Screen Not Detected Urine Methadone Screen Not Detected Urine Fentanyl Screen Not Detected Ur Barbiturates Screen Not Detected Ur Phencyclidine Scrn Not Detected Ur Amphetamines Screen Not Detected U Benzodiazepines Scrn Not Detected Urine Cocaine Screen Not Detected U Marijuana (THC) Screen POSITIVE H Ethyl Alcohol < 10 09/20/23 Unknown Urine clean catch - Urine devine top Urine Culture - Final DS: Summary Hospital Course Hospital Course: Pt is a 23 yo trans male with hx of depression, PTSD who presents after having been discharged from last week, states that he has not been compliant with his medications as he has no way to pick them up and is feeling too overwhelmed to attempt to navigate alternative ways of obtaining his medications; subsequently patients depression returned and with SI. Pt Described stressors including not having a car, not submitting taxes, needing to find a new place to stay by the end of the month and mom having a long-term illness. Reported feeling depressed, dysregulated, suicidal with intent, but denies plans I do not plan, just happens. Denies paranoia or hallucinations. Hospital course: On admission patient depressed. His Lamictal was increased to 150 mg but otherwise continued on previous medication doses. Patient remained depressed and emotionally reactive, irritable with peers and easily triggered into overwhelming anxiety and near panic attacks, wanting to self-harm, though able to keep himself safe and reaching out for help as needed. Patient agreed to start Risperdal 0.5 mg b.i.d.(reviewed risks/side effects) which proved stabilizing. Patient reported that he started feeling better, found himself much less emotionally reactive and also more calm and feeling in more control. Patient's affect brightened as well and he remained much more tolerable of the high acuity in the unit. He thus forth remained in good behavioral and impulse control and appropriate with peers and staff. Patient felt ready to go home, he felt safe, mood much better, no SI ready to continue treatment in the community. He worked out being able to stay with his parents until finding another place to stay. Patient also eager to return to work which he finds very therapeutic environment and is something he enjoys. Patient already has community support. He has not in imminent risk for harm to self or others and appropriate to return to the community for treatment. Request for discharge honored. medication: Started Risperdal 0.5 mg b.i.d. Increased Lamictal to 150 mg daily Continued Effexor ER 75 mg daily Continued clonidine 0.1mg p.r.n. and at bedtime Time spent discussing smoking cessation with patient: 3 to 10 minutes Status at Discharge Functional status at discharge: independent ambulation Overall status at discharge: patient is back to baseline Time Spent with Patient Time attestation: Total time managing care of this patient today _40___ minutes. Time spent: Greater than 30 minutes Discharge Plan Discharge Anticipated Discharge Date/Time: 09/27/23 11:30 Patient Disposition: Home, Self-Care Discharge Diagnosis: MDD, recurrent, severe w/out psychosis, in partial remission Referrals: [facility]: Teo Mcallister (psychiatry) [Other] - 09/30/23 12:30 pm (Hospital Discharge Appointment with psychiatric provider. Appointment is virtual appointment) Teo Turpin MD [Primary Care Provider] - 1 Week Discharge Medications: New hydroxyzine HCl 25 mg Tablet 25 mg PO Q6H PRN (Reason: Anxiety) 30 Days Qty: 60 0RF olanzapine 10 mg Tablet 10 mg PO TID PRN (Reason: agitation) 30 Days Qty: 30 0RF risperidone 0.5 mg Tablet 0.5 mg PO BID 30 Days Qty: 60 0RF norethindrone acetate 5 mg Tablet 10 mg PO DAILY 30 Days Qty: 60 0RF Continued testosterone 60 mg IM DIRECTED Patient Comments: pt takes it every week on Tuesdays atorvastatin 40 mg Tablet 40 mg PO DAILY 30 Days Qty: 30 0RF venlafaxine 75 mg Capsule,Extended Release 24hr 75 mg PO DAILY 30 Days Qty: 30 0RF trazodone 50 mg Tablet 50 mg PO BEDTIME PRN (Reason: Insomnia) 30 Days Qty: 30 0RF prazosin 1 mg Capsule 1 mg PO BEDTIME 30 Days Qty: 30 0RF Changed lamotrigine 150 mg tablet 150 mg PO DAILY 30 Days Qty: 30 0RF clonidine HCl 0.1 mg Tablet 0.1 mg PO Q4H PRN (Reason: anxiety/insomnia) 30 Days Qty: 60 0RF Protocol: Hold for SBP< HOLD for SBP < : 90 Discontinued olanzapine 5 mg Tablet 5 mg PO BID PRN (Reason: agitation) Qty: 60 0RF norethindrone acetate 5 mg tablet 10 mg PO DAILY Discharge Orders: Discharge Order (Routine); Ordered 09/27/23 Ordered By: Jeffrey Britton Diet: Regular diet Activity on Discharge: As tolerated Stand Alone Forms: Patient Portal Discharge page Print Language: E[place] Care Plan Goals: Maintain mood and safe behaviors Take medications as prescribed Practice coping skills Continue with outpatient providers and reach out to them as needed Health Concerns: Mood stability and behaviors Hormone treatment Plan of Treatment: Follow up with your PCP, psychiatric provider and other outpatient providers regarding above concerns Take medications as prescribed Assessment: Risk assessment at time of discharge:? Patient was interviewed prior to discharge and found to be fully oriented and without any SI or HI. Patient has improved insight and judgment and wants to continue treatment. Patient is not in imminent risk of harm to self or others and has a safety plan that includes presenting to the closest ER or calling 911 if feeling unsafe.? Patient has been observed closely by nursing and unit staff throughout admission; patient has not engaged in any behaviors that suggest dangerousness to self or others and has demonstrated appropriate behaviors and impulse control
[2023-09-27] MEDS: lamoTRIgine 25 MG TABLET 150 MG PO (08:33)
[2023-09-27] MEDS: risperiDONE 0.5 MG TABLET PO (08:34)
[2023-09-27] MEDS: Venlafaxine HCl ER 75 MG CAP.ER.24H PO (08:34)
== END 2023-09-27 11:37 | disposition home or self-care (01) | DRG 754 ==
LOC: HO.ED 13:12 → HO.PM5 15:50
PROVIDERS: Registered Nurse Emergency; Admitting Provider Psychiatry & Neurology Psychiatry; Emergency Provider Student in an Organized Health Care Education/Training Program; PCP Pediatrics; Visit Provider Psychiatry & Neurology Psychiatry
DX: F32.9 Major depressive disorder, single episode, unspecified (principal); R45.851 Suicidal ideations; F17.210 Nicotine dependence, cigarettes, uncomplicated; F43.10 Post-traumatic stress disorder, unspecified; Z91.52 Personal history of nonsuicidal self-harm; Z71.6 Tobacco abuse counseling; Z79.899 Other long term (current) drug therapy
CPT/HCPCS: 36415; 80053; 80307; 81001; 85025; 87086; 99285; S9485

== ENCOUNTER → 2023-09-20 15:45 | Outpatient (BNV) | payer MEDICAID, SELFPAY | PROVIDERS: Admitting Provider Psychiatry & Neurology Psychiatry; Emergency Provider Student in an Organized Health Care Education/Training Program; PCP Pediatrics; Visit Provider Psychiatry & Neurology Psychiatry | DX: F33.2 Major depressive disorder, recurrent severe without psychotic features (principal); F43.11 Post-traumatic stress disorder, acute | CPT/HCPCS: 90792; 99231; 99232; 99239 ==